=== PATIENT | male | born 1955 | race Caucasian/White ===

== ENCOUNTER 2017-11-19 14:32 | Emergency (ER) | payer BC, OTHER ==
[2017-11-19] MEDS ORDERED: Aspirin 81 MG Tab.Chew ONE (14:46)
[2017-11-19] MEDS ORDERED: Nitroglycerin 0.4 MG Tab.SL ONE (14:47)
[2017-11-19] MEDS ORDERED: Aspirin 81 MG Tab.Chew PO ONE (14:55)
[2017-11-19] MEDS ORDERED: Nitroglycerin 0.4 MG Tab.SL SL ONE (14:55)
[2017-11-19] MEDS ORDERED: Ketorolac 60 MG/2 ML SDV ONE (16:04)
[2017-11-19] MEDS ORDERED: Ketorolac 60 MG/2 ML SDV IM ONE (16:05)
--- NOTE | 2017-11-20 09:45 | CR ---
Chest 1V Frontal HISTORY: CHEST COMPARISON: None FINDINGS: Portable chest, 1449 hours. Lungs appear clear and normally aerated. Cardiomediastinal silhouette is within normal limits. No vas cular redistribution or pleural fluid can be seen. Small anterolateral aspects are noted along the th oracic spine. IMPRESSION: No acute chest abnormality identified.
[2017-11-20 15:19] VITALS: BP 128/78
== END 2017-11-19 16:49 | disposition home or self-care (01) ==
LOC: JP.ED 14:32
DX: R07.89 Other chest pain (principal); I10 Essential (primary) hypertension; Z88.0 Allergy status to penicillin; Z79.899 Other long term (current) drug therapy
CPT/HCPCS: 36415; 71010; 80053; 82550; 84484; 85025; 96372; 99285; A9270; J1885; 93005; 93010; 99284

== ENCOUNTER 2019-07-02 14:04 | Emergency (ER) | payer OTHER ==
[2019-07-02 14:22] VITALS: BP 120/75; PULSE 76
--- NOTE | 2019-07-02 14:54 | EDM.PDOC ---
ED HPI GENERAL MEDICAL PROBLEM - General Chief Complaint: General Stated Complaint: FEELING POORLY MAYBE FROM TICK BITE Time Seen by Provider: 07/02/19 14:30 Source of Information: Reports: Patient History Limitations: Reports: No Limitations - History of Present Illness INITIAL COMMENTS - FREE TEXT/NARRATIVE: 63-year-old male had generalized body aches yesterday and a fever. He had been feeling healthy up until that time. Today he feels better but he called the [facility] and asked them if he should be seen and they told him to come to the emergency room. He has no dysuria, cough, sore throat, abdominal pain, nausea vomiting or diarrhea. He's had no rashes. He has had several tick bites this year. He has an appointment at the [facility] in 4 days. Onset: Sudden Duration: Day(s): (24 hours ago) Associated Symptoms: Reports: Fever/Chills, Malaise, Weakness. Denies: Confusion, Cough, Headaches, Shortness of Breath Generalized Pain Score (Numeric/FACES): 2 - Related Data Allergies Allergy/AdvReac Type Severity Reaction Status Date / Time Penicillins Allergy Hives Verified 07/02/19 14:24 Home Meds: Home Meds Atenolol/Chlorthalidone [Tenoretic 50] 1 tab PO DAILY 05/08/15 [History] Hydroxychloroquine Sulfate [Plaquenil] 200 mg PO DAILY 05/08/15 [History] Lisinopril 1 tab PO DAILY 07/02/19 [History] Past Medical History HEENT History: Reports: Cataract, Impaired Vision Cardiovascular History: Reports: High Cholesterol, Hypertension Genitourinary History: Reports: BPH Musculoskeletal History: Reports: RA - Past Surgical History HEENT Surgical History: Reports: Cataract Surgery Musculoskeletal Surgical History: Reports: Knee Replacement Social & Family History - Recreational Drug Use Recreational Drug Use: No ED ROS GENERAL - Review of Systems Review Of Systems: See Below Constitutional: Reports: Fever, Chills, Malaise HEENT: Reports: No Symptoms. Denies: Throat Pain Respiratory: Denies: Shortness of Breath, Cough Cardiovascular: Denies: Chest Pain GI/Abdominal: Denies: Abdominal Pain, Nausea, Vomiting : Reports: No Symptoms Musculoskeletal: Reports: Other (Joints were aching yesterday, not swollen) Skin: Reports: Bruising (Bruises easily) Neurological: Denies: Headache ED EXAM, GENERAL - Physical Exam Exam: See Below Exam Limited By: No Limitations General Appearance: Alert, No Apparent Distress Eye Exam: Bilateral Eye: Normal Inspection Head: Atraumatic Neck: Normal Inspection Respiratory/Chest: No Respiratory Distress, Lungs Clear Cardiovascular: Regular Rate, Rhythm GI/Abdominal: Non-Tender Extremities: Other (Bruises and abrasions on the extremities but no rash) Neurological: Alert, Oriented Course - Vital Signs Last Recorded V/S: Last Vital Signs Temp 95.9 F 07/02/19 14:23 Pulse 76 07/02/19 14:23 Resp 16 07/02/19 14:23 BP 120/75 07/02/19 14:23 Pulse Ox 98 07/02/19 14:23 - Re-Assessments/Exams Free Text/Narrative Re-Assessment/Exam: 07/02/19 14:51 Explained to the patient that if we draw tick disease titers at this time, we will not get results back until next [facility]. We can start him on doxycycline today and he can have these labs done on Saturday and he would prefer to do that if possible. He does understand that this may have been just viral and will not respond to antibiotics, he can discuss this when he gets rechecked on Saturday. Being on an antibiotic should not affect his blood tests. Departure - Departure Time of Disposition: 15:14 Disposition: Home, Self-Care 01 Clinical Impression: Fever Qualifiers: Fever type: unspecified Qualified Code(s): R50.9 - Fever, unspecified Joint pain Qualifiers: Joint pain location: unspecified Qualified Code(s): M25.50 - Pain in unspecified joint - Discharge Information Instructions: Fever, Adult Referrals: Jamia Gilbert MD [Primary Care Provider] - Forms: ED Department Discharge Care Plan Goals: Take antibiotic twice daily as prescribed and recheck on Saturday as scheduled. Consider drawing tick disease titers on Saturday with your other blood tests. He can return sooner if worsening such as persistent high fever or vomiting the medication.
== END 2019-07-02 15:14 | disposition home or self-care (01) ==
LOC: JP.ED 14:04
DX: R50.9 Fever, unspecified (principal); M25.50 Pain in unspecified joint; I10 Essential (primary) hypertension; E78.00 Pure hypercholesterolemia, unspecified; Z88.0 Allergy status to penicillin; Z79.899 Other long term (current) drug therapy
CPT/HCPCS: 99282; 99283

== ENCOUNTER 2021-02-04 11:49 | Inpatient (IN) | payer OTHER ==
--- NOTE | 2021-02-04 12:38 | EDM.PDOC ---
ED HPI GENERAL MEDICAL PROBLEM - General Chief Complaint: General Stated Complaint: LOW BP Time Seen by Provider: 02/04/21 12:18 Source of Information: Reports: Patient, Family, RN Notes Reviewed History Limitations: Reports: No Limitations - History of Present Illness INITIAL COMMENTS - FREE TEXT/NARRATIVE: 65-year-old gentleman presents emergency department today with complaint of low blood pressure, he was initially evaluated in the clinic subsequently called by the clinic provider for transfer to the emergency department as he was hypotensive in clinic systolic blood pressure in the mid 70s. He states he has been ill for about 5 days has had some fevers at home body aches was tested for Covid 2 days prior which was negative he states he had a swab done in the clinic influenza was negative for a and B today and Covid test was -2 days prior - Related Data Allergies Allergy/AdvReac Type Severity Reaction Status Date / Time Penicillins Allergy Hives Verified 02/04/21 12:08 Home Meds: Home Meds Atenolol/Chlorthalidone [Tenoretic 50] 1 tab PO DAILY 05/08/15 [History] Hydroxychloroquine Sulfate [Plaquenil] 200 mg PO DAILY 05/08/15 [History] Lisinopril 1 tab PO DAILY 07/02/19 [History] Past Medical History HEENT History: Reports: Cataract, Impaired Vision Cardiovascular History: Reports: High Cholesterol, Hypertension Genitourinary History: Reports: BPH Musculoskeletal History: Reports: RA - Past Surgical History HEENT Surgical History: Reports: Cataract Surgery Musculoskeletal Surgical History: Reports: Knee Replacement Social & Family History - Tobacco Use Tobacco Use Status *Q: Former Tobacco User Packs/Tins Daily: 45 Used Tobacco, but Quit: Yes Month/Year Tobacco Last Used: saturday ED ROS GENERAL - Review of Systems Review Of Systems: See Below Constitutional: Reports: Fever, Chills HEENT: Reports: No Symptoms Respiratory: Reports: No Symptoms Cardiovascular: Reports: No Symptoms GI/Abdominal: Reports: No Symptoms Musculoskeletal: Reports: Muscle Pain, Muscle Stiffness ED EXAM, GENERAL - Physical Exam Exam: See Below Exam Limited By: No Limitations General Appearance: Alert, WD/WN, No Apparent Distress Respiratory/Chest: No Respiratory Distress, Lungs Clear, Normal Breath Sounds, No Accessory Muscle Use, Chest Non-Tender Cardiovascular: Regular Rate, Rhythm, No Murmur GI/Abdominal: Soft, Non-Tender Course - Vital Signs Last Recorded V/S: Last Vital Signs Temp 96.5 F L 02/04/21 12:20 Pulse 64 02/04/21 12:20 Resp 14 02/04/21 12:20 BP 78/48 L 02/04/21 12:20 Pulse Ox 91 L 02/04/21 12:20 - Orders/Labs/Meds Orders: Active Orders 24 hr Category Date Time Status Patient Status Manage Transfer [TRANSFER] Routine ADT 02/04/21 14:02 Active Vital Signs [RC] Q1H Care 02/04/21 12:34 Active Chest 2V [CR] Urgent Exams 02/04/21 12:36 Taken CULTURE BLOOD [BC] Urgent Lab 02/04/21 12:45 Received CULTURE BLOOD [BC] Urgent Lab 02/04/21 12:48 Received UA W/MICROSCOPIC [URIN] Urgent Lab 02/04/21 12:34 Ordered Blood Culture x2 Reflex Set [OM.PC] Urgent Oth 02/04/21 12:34 Ordered Resuscitation Status Routine Resus Stat 02/04/21 14:04 Ordered Labs: Laboratory Tests 02/04/21 02/04/21 02/04/21 Range/Units 12:01 12:01 12:01 WBC 12.5 H (4.5-11.0) K/uL RBC 4.59 (4.30-5.90) M/uL Hgb 15.0 (12.0-15.0) g/dL Hct 43.5 (40.0-54.0) % MCV 95 (80-98) fL MCH 33 H (27-31) pg MCHC 35 (32-36) % Plt Count 234 (150-400) K/uL Neut % (Auto) 71 H (36-66) % Lymph % (Auto) 17 L (24-44) % [place] % (Auto) 11 H (2-6) % Eos % (Auto) 1 L (2-4) % Baso % (Auto) 1 (0-1) % Sodium 139 L (140-148) mmol/L Potassium 3.1 L (3.6-5.2) mmol/L Chloride 101 (100-108) mmol/L Carbon Dioxide 27 (21-32) mmol/L Anion Gap 14.1 H (5.0-14.0) mmol/L BUN 31 H D (7-18) mg/dL Creatinine 2.0 H D (0.8-1.3) mg/dL Est Cr Clr Drug Dosing 39.34 mL/min Estimated GFR (MDRD) 33 L (>60) Glucose 118 H (74-106) mg/dL Lactic Acid 2.2 H (0.4-2.0) mmol/L Calcium 9.4 (8.5-10.1) mg/dL Total Bilirubin 0.4 D (0.2-1.0) mg/dL AST 58 H (15-37) U/L ALT 47 (12-78) U/L Alkaline Phosphatase 50 (46-116) U/L C-Reactive Protein 14.96 H (0.0-0.3) mg/dL Total Protein 7.2 (6.4-8.2) g/dL Albumin 3.5 (3.4-5.0) g/dL Globulin 3.7 H (2.3-3.5) g/dL Albumin/Globulin Ratio 1.0 L (1.2-2.2) Procalcitonin ng/mL Influenza Type A RNA (NEGATIVE) RSV RNA (INAAT) (NEGATIVE) Influenza Type B RNA (NEGATIVE) SARS-CoV-2 RNA (BECKI) (NEGATIVE) 02/04/21 02/04/21 Range/Units 12:01 13:46 WBC (4.5-11.0) K/uL RBC (4.30-5.90) M/uL Hgb (12.0-15.0) g/dL Hct (40.0-54.0) % MCV (80-98) fL MCH (27-31) pg MCHC (32-36) % Plt Count (150-400) K/uL Neut % (Auto) (36-66) % Lymph % (Auto) (24-44) % [place] % (Auto) (2-6) % Eos % (Auto) (2-4) % Baso % (Auto) (0-1) % Sodium (140-148) mmol/L Potassium (3.6-5.2) mmol/L Chloride (100-108) mmol/L Carbon Dioxide (21-32) mmol/L Anion Gap (5.0-14.0) mmol/L BUN (7-18) mg/dL Creatinine (0.8-1.3) mg/dL Est Cr Clr Drug Dosing mL/min Estimated GFR (MDRD) (>60) Glucose (74-106) mg/dL Lactic Acid (0.4-2.0) mmol/L Calcium (8.5-10.1) mg/dL Total Bilirubin (0.2-1.0) mg/dL AST (15-37) U/L ALT (12-78) U/L Alkaline Phosphatase (46-116) U/L C-Reactive Protein (0.0-0.3) mg/dL Total Protein (6.4-8.2) g/dL Albumin (3.4-5.0) g/dL Globulin (2.3-3.5) g/dL Albumin/Globulin Ratio (1.2-2.2) Procalcitonin 0.41 ng/mL Influenza Type A RNA Negative (NEGATIVE) RSV RNA (INAAT) Negative (NEGATIVE) Influenza Type B RNA Negative (NEGATIVE) SARS-CoV-2 RNA (BECKI) Negative (NEGATIVE) Meds: Medications Discontinued Medications Generic Name Dose Route Start Last Admin Trade Name Freq PRN Reason Stop Dose Admin Lactated Ringer's 1,000 mls @ 999 mls/hr 02/04/21 12:50 02/04/21 13:53 Ringers, Lactated IV 02/04/21 13:50 999 mls/hr BOLUS ONE Administration Ceftriaxone Sodium 1 gm/ 50 mls @ 100 mls/hr 02/04/21 13:25 02/04/21 13:54 Sodium Chloride IV 02/04/21 13:54 100 mls/hr ONETIME ONE Administration Departure - Departure Time of Disposition: 14:31 Disposition: Admitted As Inpatient 64 Condition: Fair Clinical Impression: CAP (community acquired pneumonia) Qualifiers: Laterality: right Lung location: lower lobe of lung Qualified Code(s): J18.9 - Pneumonia, unspecified organism - Discharge Information Referrals: Nicolas nKox MD [Primary Care Provider] - Forms: ED Department Discharge Sepsis Event Note (ED) - Evaluation Sepsis Screening Result: No Definite Risk - Focused Exam Vital Signs: Vital Signs Temp Pulse Resp BP Pulse Ox 02/04/21 12:20 96.5 F L 64 14 78/48 L 91 L - My Orders Last 24 Hours: My Active Orders 02/04/21 12:34 Vital Signs [RC] Q1H UA W/MICROSCOPIC [URIN] Urgent Blood Culture x2 Reflex Set [OM.PC] Urgent 02/04/21 12:36 Chest 2V [CR] Urgent 02/04/21 12:45 CULTURE BLOOD [BC] Urgent 02/04/21 12:48 CULTURE BLOOD [BC] Urgent - Assessment/Plan Last 24 Hours: My Active Orders 02/04/21 12:34 Vital Signs [RC] Q1H UA W/MICROSCOPIC [URIN] Urgent Blood Culture x2 Reflex Set [OM.PC] Urgent 02/04/21 12:36 Chest 2V [CR] Urgent 02/04/21 12:45 CULTURE BLOOD [BC] Urgent 02/04/21 12:48 CULTURE BLOOD [BC] Urgent Plan: Assessment Acuity = acute Site and laterality = community-acquired pneumonia right lower lobe Etiology = probable bacterial cause Manifestations = fever, body aches Location of injury = Home Lab values = WBC elevated 12.5 consistent leukocytosis, potassium 3.1 consistent hypokalemia creatinine elevated 2.0 consistent with acute renal failure stage G 3P lactic acid elevated 2.2 consistent lactic acidosis CRP elevated 14.96 procalcitonin 0.41 chest x-ray shows an infiltrate right lower lobe urinalysis pending Covid repeat swab pending, blood cultures pending Plan Call discussed case with hospitalist on-call at 1330 currently agreed to come and evaluate patient emergency department for admission thus far he has received 1 g Rocephin and 1 dose of levofloxacin 750 mg This note was dictated using [employer] voice recognition software please call with any questions on syntax or grammar.
[2021-02-04] MEDS: Lactated Ringers 1,000 ML IV ONE ×2 (13:14→13:53)
[2021-02-04] MEDS ORDERED: cefTRIAXone 1 GM in Sodium Chloride 0.9% 50 ML IV ONE (13:25)
--- NOTE | 2021-02-04 14:10 | PCM.HP.2 ---
H&P History of Present Illness - General Date of Service: 02/04/21 Admit Problem/Dx: Admission Diagnosis/Problem Admission Diagnosis/Problem Pneumonia Source of Information: Patient, Provider, RN Notes Reviewed History Limitations: Reports: No Limitations - History of Present Illness Initial Comments - Free Text/Narative: Mr. Chanel is a 65-year-old gentleman who was admitted through the emergency department with fever and progressive weakness secondary to pneumonia with sepsis. He last felt well about 4 days ago and then developed fever with progressive weakness and anorexia. Because of increased symptoms he presented the walk-in clinic earlier today and was found to be significantly hypotensive, colic pressure into the 70s. He was referred to the emergency department for further evaluation and management. He was also noted to have significant hypotension when he arrived in the emergency department. Chest x-ray does show evidence of right lung infiltrate consistent with pneumonia. Blood cell count was modestly elevated and there was a slight elevation in lactic acid level. Per sepsis protocol he has received fluid bolus of 30 cc/kg, blood cultures have been obtained, and he has received first dose of antibiotic therapy. Follow-up lactic acid level 4 hours after original level is pending. Blood pressure has improved following aggressive fluid replacement. - Related Data Allergies/Adverse Reactions: Allergies Allergy/AdvReac Type Severity Reaction Status Date / Time Penicillins Allergy Hives Verified 02/04/21 12:08 Home Medications: Home Meds Atenolol/Chlorthalidone [Tenoretic 50] 1 tab PO DAILY 05/08/15 [History] Hydroxychloroquine Sulfate [Plaquenil] 200 mg PO DAILY 05/08/15 [History] Lisinopril 1 tab PO DAILY 07/02/19 [History] Past Medical History HEENT History: Reports: Cataract, Impaired Vision Cardiovascular History: Reports: High Cholesterol, Hypertension Genitourinary History: Reports: BPH Musculoskeletal History: Reports: RA - Past Surgical History HEENT Surgical History: Reports: Cataract Surgery Musculoskeletal Surgical History: Reports: Knee Replacement Social & Family History - Tobacco Use Tobacco Use Status *Q: Former Tobacco User Packs/Tins Daily: 45 Used Tobacco, but Quit: Yes Month/Year Tobacco Last Used: saturday H&P Review of Systems - Review of Systems: Review Of Systems: See Below General: Reports: Fever, Chills, Malaise, Weakness, Fatigue, Decreased Appetite HEENT: Reports: No Symptoms Pulmonary: Reports: Cough. Denies: Shortness of Breath, Wheezing, Sputum, Hemoptysis Cardiovascular: Reports: No Symptoms Gastrointestinal: Reports: No Symptoms Genitourinary: Reports: No Symptoms Musculoskeletal: Reports: No Symptoms Skin: Reports: No Symptoms Psychiatric: Reports: No Symptoms Neurological: Reports: No Symptoms Hematologic/Lymphatic: Reports: No Symptoms Immunologic: Reports: No Symptoms Exam - Exam Exam: See Below - Vital Signs Vital Signs: Last Vital Signs Temp 96.5 F L 02/04/21 12:20 Pulse 64 02/04/21 12:20 Resp 14 02/04/21 12:20 BP 78/48 L 02/04/21 12:20 Pulse Ox 91 L 02/04/21 12:20 Weight: 212 lb - Exam Quality Assessment: DVT Prophylaxis General: Alert, Oriented, Cooperative, Moderate Distress HEENT: Conjunctiva Clear, Hearing Intact, Normal Nasal Septum, Posterior Pharynx Clear, Pupils Equal. No: Mucosa Moist & [place] Neck: Supple, Trachea Midline, +2 Carotid Pulse wo Bruit Lungs: Normal Respiratory Effort, Rales. No: Crackles, Rhonchi, Wheezing Cardiovascular: Regular Rate, Regular Rhythm, Normal S1, Normal S2. No: Systolic Murmur, Diastolic Murmur GI/Abdominal Exam: Soft, Non-Tender, No Organomegaly, No Distention Back Exam: Normal Inspection, Full Range of Motion Skin: Warm, Dry, Intact Neurological: Cranial Nerves Intact, Strength Equal Bilateral, Normal Speech, Normal Tone, Sensation Intact. No: Focal Deficit Neuro Extensive - Mental Status: Alert, Oriented x3, Normal Mood/Affect, Normal Cognition, Memory Intact - Patient Data Lab Results Last 24 hrs: Laboratory Results - last 24 hr 02/04/21 02/04/21 02/04/21 Range/Units 12:01 12:01 12:01 WBC 12.5 H (4.5-11.0) K/uL RBC 4.59 (4.30-5.90) M/uL Hgb 15.0 (12.0-15.0) g/dL Hct 43.5 (40.0-54.0) % MCV 95 (80-98) fL MCH 33 H (27-31) pg MCHC 35 (32-36) % Plt Count 234 (150-400) K/uL Neut % (Auto) 71 H (36-66) % Lymph % (Auto) 17 L (24-44) % [place] % (Auto) 11 H (2-6) % Eos % (Auto) 1 L (2-4) % Baso % (Auto) 1 (0-1) % Sodium 139 L (140-148) mmol/L Potassium 3.1 L (3.6-5.2) mmol/L Chloride 101 (100-108) mmol/L Carbon Dioxide 27 (21-32) mmol/L Anion Gap 14.1 H (5.0-14.0) mmol/L BUN 31 H D (7-18) mg/dL Creatinine 2.0 H D (0.8-1.3) mg/dL Est Cr Clr Drug Dosing 39.34 mL/min Estimated GFR (MDRD) 33 L (>60) Glucose 118 H (74-106) mg/dL Lactic Acid 2.2 H (0.4-2.0) mmol/L Calcium 9.4 (8.5-10.1) mg/dL Total Bilirubin 0.4 D (0.2-1.0) mg/dL AST 58 H (15-37) U/L ALT 47 (12-78) U/L Alkaline Phosphatase 50 (46-116) U/L C-Reactive Protein 14.96 H (0.0-0.3) mg/dL Total Protein 7.2 (6.4-8.2) g/dL Albumin 3.5 (3.4-5.0) g/dL Globulin 3.7 H (2.3-3.5) g/dL Albumin/Globulin Ratio 1.0 L (1.2-2.2) Procalcitonin ng/mL 02/04/21 Range/Units 12:01 WBC (4.5-11.0) K/uL RBC (4.30-5.90) M/uL Hgb (12.0-15.0) g/dL Hct (40.0-54.0) % MCV (80-98) fL MCH (27-31) pg MCHC (32-36) % Plt Count (150-400) K/uL Neut % (Auto) (36-66) % Lymph % (Auto) (24-44) % [place] % (Auto) (2-6) % Eos % (Auto) (2-4) % Baso % (Auto) (0-1) % Sodium (140-148) mmol/L Potassium (3.6-5.2) mmol/L Chloride (100-108) mmol/L Carbon Dioxide (21-32) mmol/L Anion Gap (5.0-14.0) mmol/L BUN (7-18) mg/dL Creatinine (0.8-1.3) mg/dL Est Cr Clr Drug Dosing mL/min Estimated GFR (MDRD) (>60) Glucose (74-106) mg/dL Lactic Acid (0.4-2.0) mmol/L Calcium (8.5-10.1) mg/dL Total Bilirubin (0.2-1.0) mg/dL AST (15-37) U/L ALT (12-78) U/L Alkaline Phosphatase (46-116) U/L C-Reactive Protein (0.0-0.3) mg/dL Total Protein (6.4-8.2) g/dL Albumin (3.4-5.0) g/dL Globulin (2.3-3.5) g/dL Albumin/Globulin Ratio (1.2-2.2) Procalcitonin 0.41 ng/mL Result Diagrams: 02/04/21 12:01 02/04/21 12:01 Sepsis Event Note - Evaluation Sepsis Screening Result: No Definite Risk - Focused Exam Vital Signs: Vital Signs Temp Pulse Resp BP Pulse Ox 02/04/21 12:20 96.5 F L 64 14 78/48 L 91 L *Q Meaningful Use (ADM) - VTE Risk Assess *Q Each Risk Factor Represents 1 Point: Obesity ( BMI > 25 kg/m2), Sepsis, Serious lung disease including pneumonia Total Score 1 Point Risk Factors: 3 Each Risk Factor Represents 2 Points: Age 60 - 74 Years Total Score 2 Point Risk Factors: 2 Each Risk Factor Represents 3 Points: None Total Score 3 Point Risk Factors: 0 Each Risk Factor Represents 5 Points: None Total Score 5 Point Risk Factors: 0 Venous Thromboembolism Risk Factor Score *Q: 5 Problem List Initiated/Reviewed/Updated: Yes Orders Last 24hrs: Active Orders 24 hr Category Date Time Status Patient Status Manage Transfer [TRANSFER] Routine ADT 02/04/21 14:02 Ordered Vital Signs [RC] Q1H Care 02/04/21 12:34 Active Chest 2V [CR] Urgent Exams 02/04/21 12:36 Taken COVID-19/FLU A+B/RSV [MOLEC] Stat Lab 02/04/21 13:46 Received CULTURE BLOOD [BC] Urgent Lab 02/04/21 12:45 Received CULTURE BLOOD [BC] Urgent Lab 02/04/21 12:48 Received UA W/MICROSCOPIC [URIN] Urgent Lab 02/04/21 12:34 Ordered Blood Culture x2 Reflex Set [OM.PC] Urgent Oth 02/04/21 12:34 Ordered Resuscitation Status Routine Resus Stat 02/04/21 14:04 Ordered Assessment/Plan Comment:: ASSESSMENT AND PLAN RIGHT LUNG PNEUMONIA WITH SEPSIS-infiltrate noted on chest x-ray associated with modest elevation in white blood cell count and lactic acid level. Severe hypotension noted on initial assessment. Blood pressure has stabilized following vigorous fluid replacement per sepsis protocol, 30 mL/kg. He has received initial dose of antibiotics and blood cultures were obtained. -IV norepinephrine for further hypotension -Blood cultures pending -IV ceftriaxone and levofloxacin, pending culture results ACUTE KIDNEY INJURY-likely secondary to dehydration and sepsis. He also reports use of nonsteroidal therapy with ibuprofen at home over the past few days. -Closely monitor urine output and renal function HYPERTENSION-blood pressure low secondary to sepsis -Hold outpatient antihypertensive therapy until blood pressure has stabilized MAINTENANCE ISSUES -DVT prophylaxis; Lovenox 40 mg subcu daily -GI prophylaxis; not indicated -Brady catheter; not indicated -Nutrition; 2 g sodium diet -Nicotine dependence; not required CODE STATUS-FULL CODE ADMISSION STATUS-patient will be admitted to inpatient status, expect at least a 2 night hospital stay for evaluation and management of problems as outlined above. At the time of this admission I do not reasonably expected evaluation and management of this problem will require more than a 96 hour hospital stay. DISPOSITION-anticipate discharge to home after the hospital stay. PRIMARY CARE PROVIDER-Dr. Knox - Mortality Measure Prognosis:: Good
[2021-02-04 14:26] LABS: CORONAVIRUS COVID-19 NAA NEGATIVE (NEGATIVE)
[2021-02-04] MEDS ORDERED: Ondansetron 4 MG/2 ML SDV IV PRN (15:15)
[2021-02-04] MEDS ORDERED: Polyethylene Glycol 3350 Powder 17 GM Packet PO PRN (15:15)
[2021-02-04] MEDS ORDERED: Albuterol 0.083% 2.5 MG/3 ML Neb Soln NEB PRN (15:15)
[2021-02-04] MEDS ORDERED: Sodium Chloride 0.9% 10 ML Syringe FLUSH PRN (15:15)
[2021-02-04] MEDS ORDERED: Potassium Chloride 20 MEQ Tab.ER PO ONE ×2 (15:45→21:00)
[2021-02-04] MEDS: Sodium Chloride 0.9% 1,000 ML IV SCH (16:00)
[2021-02-04] MEDS: Levofloxacin/Dextrose 5%-Water 750 MG in Premix Bag 1 BAG IV SCH (16:01)
[2021-02-04] MEDS: Acetaminophen 325 MG Tab PO PRN (16:01)
[2021-02-04] MEDS: Enoxaparin 40 MG/0.4 ML Syringe SUBCUT SCH (16:02)
[2021-02-05] MEDS: Sodium Chloride 0.9% 1,000 ML IV SCH ×2 (00:59→08:33)
[2021-02-05] MEDS: Acetaminophen 325 MG Tab PO PRN ×2 (05:50→23:19)
[2021-02-05] MEDS: Magnesium Sulfate/Water 2 GM/50 ML BAG IV SCH ×2 (08:26→16:57)
[2021-02-05] MEDS: Magnesium Oxide 400 MG Tab PO SCH ×2 (08:27→20:41)
[2021-02-05] MEDS ORDERED: Potassium Chloride 20 MEQ Tab.ER PO ONE ×2 (09:00→17:00)
[2021-02-05] MEDS ORDERED: Sodium Chloride 0.9% 1,000 ML IV SCH (10:15)
--- NOTE | 2021-02-05 10:16 | PCM.PN ---
- General Info Date of Service: 02/05/21 Subjective Update: Mr. Chanel has been stable to admission yesterday. After IV fluid boluses there has been no further hypotension. Vital signs have otherwise been stable and he has remained afebrile. White blood cell count and lactic acid level have normalized. Functional Status: Reports: Tolerating Diet, Urinating - Review of Systems General: Reports: Weakness, Fatigue. Denies: Fever, Chills Pulmonary: Reports: No Symptoms Cardiovascular: Reports: No Symptoms Gastrointestinal: Reports: No Symptoms - Patient Data Vitals - Most Recent: Last Vital Signs Temp 97.4 F 02/05/21 08:00 Pulse 72 02/05/21 08:00 Resp 14 02/05/21 08:00 BP 99/68 02/05/21 08:00 Pulse Ox 98 02/05/21 08:00 Weight - Most Recent: 218 lb 14.704 oz I&O - Last 24 Hours: Intake & Output 02/04/21 02/05/21 02/05/21 22:59 06:59 14:59 Intake Total 420 2162 400 Output Total 0 1525 Balance 420 637 400 Lab Results Last 24 Hours: Laboratory Results - last 24 hr 02/04/21 02/04/21 02/04/21 Range/Units 12:01 12:01 12:01 WBC 12.5 H (4.5-11.0) K/uL RBC 4.59 (4.30-5.90) M/uL Hgb 15.0 (12.0-15.0) g/dL Hct 43.5 (40.0-54.0) % MCV 95 (80-98) fL MCH 33 H (27-31) pg MCHC 35 (32-36) % Plt Count 234 (150-400) K/uL Neut % (Auto) 71 H (36-66) % Lymph % (Auto) 17 L (24-44) % Harnett % (Auto) 11 H (2-6) % Eos % (Auto) 1 L (2-4) % Baso % (Auto) 1 (0-1) % Sodium 139 L (140-148) mmol/L Potassium 3.1 L (3.6-5.2) mmol/L Chloride 101 (100-108) mmol/L Carbon Dioxide 27 (21-32) mmol/L Anion Gap 14.1 H (5.0-14.0) mmol/L BUN 31 H D (7-18) mg/dL Creatinine 2.0 H D (0.8-1.3) mg/dL Est Cr Clr Drug Dosing 39.34 mL/min Estimated GFR (MDRD) 33 L (>60) Glucose 118 H (74-106) mg/dL Lactic Acid 2.2 H (0.4-2.0) mmol/L Calcium 9.4 (8.5-10.1) mg/dL Magnesium (1.8-2.4) mg/dL Total Bilirubin 0.4 D (0.2-1.0) mg/dL AST 58 H (15-37) U/L ALT 47 (12-78) U/L Alkaline Phosphatase 50 (46-116) U/L C-Reactive Protein 14.96 H (0.0-0.3) mg/dL Total Protein 7.2 (6.4-8.2) g/dL Albumin 3.5 (3.4-5.0) g/dL Globulin 3.7 H (2.3-3.5) g/dL Albumin/Globulin Ratio 1.0 L (1.2-2.2) Procalcitonin ng/mL Urine Color (YELLOW) Urine Appearance (CLEAR) Urine pH (5.0-8.0) Ur Specific [place] (1.008-1.030) Urine Protein (NEGATIVE) mg/dL Urine Glucose (UA) (NEGATIVE) mg/dL Urine Ketones (NEGATIVE) mg/dL Urine Occult Blood (NEGATIVE) Urine Nitrite (NEGATIVE) Urine Bilirubin (NEGATIVE) Urine Urobilinogen (0.2-1.0) EU/dL Ur Leukocyte Esterase (NEGATIVE) Urine RBC (0-5) Urine WBC (0-5) Ur Epithelial Cells Amorphous Sediment Urine Bacteria Urine Mucus Urine Other Influenza Type A RNA (NEGATIVE) RSV RNA (INAAT) (NEGATIVE) Influenza Type B RNA (NEGATIVE) SARS-CoV-2 RNA (BECKI) (NEGATIVE) 02/04/21 02/04/21 02/04/21 Range/Units 12:01 12:34 13:46 WBC (4.5-11.0) K/uL RBC (4.30-5.90) M/uL Hgb (12.0-15.0) g/dL Hct (40.0-54.0) % MCV (80-98) fL MCH (27-31) pg MCHC (32-36) % Plt Count (150-400) K/uL Neut % (Auto) (36-66) % Lymph % (Auto) (24-44) % Harnett % (Auto) (2-6) % Eos % (Auto) (2-4) % Baso % (Auto) (0-1) % Sodium (140-148) mmol/L Potassium (3.6-5.2) mmol/L Chloride (100-108) mmol/L Carbon Dioxide (21-32) mmol/L Anion Gap (5.0-14.0) mmol/L BUN (7-18) mg/dL Creatinine (0.8-1.3) mg/dL Est Cr Clr Drug Dosing mL/min Estimated GFR (MDRD) (>60) Glucose (74-106) mg/dL Lactic Acid (0.4-2.0) mmol/L Calcium (8.5-10.1) mg/dL Magnesium (1.8-2.4) mg/dL Total Bilirubin (0.2-1.0) mg/dL AST (15-37) U/L ALT (12-78) U/L Alkaline Phosphatase (46-116) U/L C-Reactive Protein (0.0-0.3) mg/dL Total Protein (6.4-8.2) g/dL Albumin (3.4-5.0) g/dL Globulin (2.3-3.5) g/dL Albumin/Globulin Ratio (1.2-2.2) Procalcitonin 0.41 ng/mL Urine Color Yellow (YELLOW) Urine Appearance Clear (CLEAR) Urine pH 5.5 (5.0-8.0) Ur Specific [place] 1.015 (1.008-1.030) Urine Protein 30 H (NEGATIVE) mg/dL Urine Glucose (UA) Negative (NEGATIVE) mg/dL Urine Ketones Negative (NEGATIVE) mg/dL Urine Occult Blood Small H (NEGATIVE) Urine Nitrite Negative (NEGATIVE) Urine Bilirubin Negative (NEGATIVE) Urine Urobilinogen 0.2 (0.2-1.0) EU/dL Ur Leukocyte Esterase Negative (NEGATIVE) Urine RBC 0-5 (0-5) Urine WBC 0-5 (0-5) Ur Epithelial Cells Few Amorphous Sediment Few Urine Bacteria Few Urine Mucus Few Urine Other Influenza Type A RNA Negative (NEGATIVE) RSV RNA (INAAT) Negative (NEGATIVE) Influenza Type B RNA Negative (NEGATIVE) SARS-CoV-2 RNA (BECKI) Negative (NEGATIVE) 02/04/21 02/05/21 02/05/21 Range/Units 16:12 04:00 04:00 WBC 9.6 (4.5-11.0) K/uL RBC 3.55 L (4.30-5.90) M/uL Hgb 11.9 L D (12.0-15.0) g/dL Hct 34.0 L (40.0-54.0) % MCV 96 (80-98) fL MCH 34 H (27-31) pg MCHC 35 (32-36) % Plt Count 182 (150-400) K/uL Neut % (Auto) 71 H (36-66) % Lymph % (Auto) 14 L (24-44) % [place]arnett % (Auto) 12 H (2-6) % Eos % (Auto) 2 (2-4) % Baso % (Auto) 0 (0-1) % Sodium 140 (140-148) mmol/L Potassium 3.4 L (3.6-5.2) mmol/L Chloride 104 (100-108) mmol/L Carbon Dioxide 26 (21-32) mmol/L Anion Gap 13.4 (5.0-14.0) mmol/L BUN 27 H (7-18) mg/dL Creatinine 1.4 H (0.8-1.3) mg/dL Est Cr Clr Drug Dosing 56.20 mL/min Estimated GFR (MDRD) 51 L (>60) Glucose 96 (74-106) mg/dL Lactic Acid 1.1 (0.4-2.0) mmol/L Calcium 8.1 L (8.5-10.1) mg/dL Magnesium 1.3 L (1.8-2.4) mg/dL Total Bilirubin (0.2-1.0) mg/dL AST (15-37) U/L ALT (12-78) U/L Alkaline Phosphatase (46-116) U/L C-Reactive Protein (0.0-0.3) mg/dL Total Protein (6.4-8.2) g/dL Albumin (3.4-5.0) g/dL Globulin (2.3-3.5) g/dL Albumin/Globulin Ratio (1.2-2.2) Procalcitonin ng/mL Urine Color (YELLOW) Urine Appearance (CLEAR) Urine pH (5.0-8.0) Ur Specific [place] (1.008-1.030) Urine Protein (NEGATIVE) mg/dL Urine Glucose (UA) (NEGATIVE) mg/dL Urine Ketones (NEGATIVE) mg/dL Urine Occult Blood (NEGATIVE) Urine Nitrite (NEGATIVE) Urine Bilirubin (NEGATIVE) Urine Urobilinogen (0.2-1.0) EU/dL Ur Leukocyte Esterase (NEGATIVE) Urine RBC (0-5) Urine WBC (0-5) Ur Epithelial Cells Amorphous Sediment Urine Bacteria Urine Mucus Urine Other Influenza Type A RNA (NEGATIVE) RSV RNA (INAAT) (NEGATIVE) Influenza Type B RNA (NEGATIVE) SARS-CoV-2 RNA (BECKI) (NEGATIVE) Med Orders - Current: Current Medications Acetaminophen (Tylenol) 650 mg PO Q4H PRN PRN Reason: Pain (Mild 1-3)/fever Last Admin: 02/05/21 05:50 Dose: 650 mg Documented by: Albuterol (Proventil Neb Soln) 2.5 mg NEB Q4H PRN PRN Reason: Shortness Of Breath/wheezing Enoxaparin Sodium (Lovenox) 40 mg SUBCUT Q24H [facility] Last Admin: 02/04/21 16:02 Dose: 40 mg Documented by: Ceftriaxone Sodium 1 gm/ (Sodium Chloride) 50 mls @ 100 mls/hr IV Q24H [facility] Levofloxacin/Dextrose 750 mg/ (Premix) 150 mls @ 100 mls/hr IV Q24H [facility] Last Admin: 02/04/21 16:01 Dose: 100 mls/hr Documented by: Magnesium Sulfate (Magnesium Sulfate In Water 2 Gm/50 Ml) 2 gm in 50 mls @ 12.5 mls/hr IV Q6H [facility] Stop: 02/05/21 18:59 Last Admin: 02/05/21 08:26 Dose: 12.5 mls/hr Documented by: Sodium Chloride (Normal Saline) 1,000 mls @ 50 mls/hr IV ASDIRECTED [facility] Magnesium Oxide (Magnesium Oxide) 400 mg PO BID [facility] Last Admin: 02/05/21 08:27 Dose: 400 mg Documented by: Ondansetron HCl (Zofran) 4 mg IV Q4H PRN PRN Reason: Nausea/Vomiting Polyethylene Glycol (Miralax) 17 gm PO DAILY PRN PRN Reason: Constipation Potassium Chloride (Klor-Con M20) 40 meq PO ONETIME ONE Stop: 02/05/21 17:01 Sodium Chloride (Saline Flush) 10 ml FLUSH ASDIRECTED PRN PRN Reason: Keep Vein Open Discontinued Medications Lactated Ringer's (Ringers, Lactated) 1,000 mls @ 999 mls/hr IV BOLUS ONE Stop: 02/04/21 13:50 Last Admin: 02/04/21 13:53 Dose: 999 mls/hr Documented by: Ceftriaxone Sodium 1 gm/ (Sodium Chloride) 50 mls @ 100 mls/hr IV ONETIME ONE Stop: 02/04/21 13:54 Last Admin: 02/04/21 13:54 Dose: 100 mls/hr Documented by: Sodium Chloride (Normal Saline) 1,000 mls @ 125 mls/hr IV ASDIRECTED MARNI Last Admin: 02/05/21 08:33 Dose: 125 mls/hr Documented by: Potassium Chloride (Klor-Con M20) 40 meq PO ONETIME ONE Stop: 02/04/21 15:46 Last Admin: 02/04/21 16:05 Dose: 40 meq Documented by: Potassium Chloride (Klor-Con M20) 40 meq PO ONETIME ONE Stop: 02/04/21 21:01 Last Admin: 02/04/21 21:32 Dose: 40 meq Documented by: Potassium Chloride (Klor-Con M20) 40 meq PO ONETIME ONE Stop: 02/05/21 09:01 Last Admin: 02/05/21 08:27 Dose: 40 meq Documented by: - Exam Quality Assessment: DVT Prophylaxis General: Alert, Oriented, Cooperative, Mild Distress Lungs: Clear to Auscultation, Normal Respiratory Effort Cardiovascular: Regular Rate, Regular Rhythm, No Murmurs GI/Abdominal Exam: Soft, Non-Tender, No Organomegaly, No Distention Extremities: Non-Tender, No Pedal Edema - Patient Data Lab Results Last 24 hrs: Laboratory Results - last 24 hr 02/04/21 02/04/21 02/04/21 Range/Units 12:01 12:01 12:01 WBC 12.5 H (4.5-11.0) K/uL RBC 4.59 (4.30-5.90) M/uL Hgb 15.0 (12.0-15.0) g/dL Hct 43.5 (40.0-54.0) % MCV 95 (80-98) fL MCH 33 H (27-31) pg MCHC 35 (32-36) % Plt Count 234 (150-400) K/uL Neut % (Auto) 71 H (36-66) % Lymph % (Auto) 17 L (24-44) % [place] % (Auto) 11 H (2-6) % Eos % (Auto) 1 L (2-4) % Baso % (Auto) 1 (0-1) % Sodium 139 L (140-148) mmol/L Potassium 3.1 L (3.6-5.2) mmol/L Chloride 101 (100-108) mmol/L Carbon Dioxide 27 (21-32) mmol/L Anion Gap 14.1 H (5.0-14.0) mmol/L BUN 31 H D (7-18) mg/dL Creatinine 2.0 H D (0.8-1.3) mg/dL Est Cr Clr Drug Dosing 39.34 mL/min Estimated GFR (MDRD) 33 L (>60) Glucose 118 H (74-106) mg/dL Lactic Acid 2.2 H (0.4-2.0) mmol/L Calcium 9.4 (8.5-10.1) mg/dL Magnesium (1.8-2.4) mg/dL Total Bilirubin 0.4 D (0.2-1.0) mg/dL AST 58 H (15-37) U/L ALT 47 (12-78) U/L Alkaline Phosphatase 50 (46-116) U/L C-Reactive Protein 14.96 H (0.0-0.3) mg/dL Total Protein 7.2 (6.4-8.2) g/dL Albumin 3.5 (3.4-5.0) g/dL Globulin 3.7 H (2.3-3.5) g/dL Albumin/Globulin Ratio 1.0 L (1.2-2.2) Procalcitonin ng/mL Urine Color (YELLOW) Urine Appearance (CLEAR) Urine pH (5.0-8.0) Ur Specific [place] (1.008-1.030) Urine Protein (NEGATIVE) mg/dL Urine Glucose (UA) (NEGATIVE) mg/dL Urine Ketones (NEGATIVE) mg/dL Urine Occult Blood (NEGATIVE) Urine Nitrite (NEGATIVE) Urine Bilirubin (NEGATIVE) Urine Urobilinogen (0.2-1.0) EU/dL Ur Leukocyte Esterase (NEGATIVE) Urine RBC (0-5) Urine WBC (0-5) Ur Epithelial Cells Amorphous Sediment Urine Bacteria Urine Mucus Urine Other Influenza Type A RNA (NEGATIVE) RSV RNA (INAAT) (NEGATIVE) Influenza Type B RNA (NEGATIVE) SARS-CoV-2 RNA (BECKI) (NEGATIVE) 02/04/21 02/04/21 02/04/21 Range/Units 12:01 12:34 13:46 WBC (4.5-11.0) K/uL RBC (4.30-5.90) M/uL Hgb (12.0-15.0) g/dL Hct (40.0-54.0) % MCV (80-98) fL MCH (27-31) pg MCHC (32-36) % Plt Count (150-400) K/uL Neut % (Auto) (36-66) % Lymph % (Auto) (24-44) % [place] % (Auto) (2-6) % Eos % (Auto) (2-4) % Baso % (Auto) (0-1) % Sodium (140-148) mmol/L Potassium (3.6-5.2) mmol/L Chloride (100-108) mmol/L Carbon Dioxide (21-32) mmol/L Anion Gap (5.0-14.0) mmol/L BUN (7-18) mg/dL Creatinine (0.8-1.3) mg/dL Est Cr Clr Drug Dosing mL/min Estimated GFR (MDRD) (>60) Glucose (74-106) mg/dL Lactic Acid (0.4-2.0) mmol/L Calcium (8.5-10.1) mg/dL Magnesium (1.8-2.4) mg/dL Total Bilirubin (0.2-1.0) mg/dL AST (15-37) U/L ALT (12-78) U/L Alkaline Phosphatase (46-116) U/L C-Reactive Protein (0.0-0.3) mg/dL Total Protein (6.4-8.2) g/dL Albumin (3.4-5.0) g/dL Globulin (2.3-3.5) g/dL Albumin/Globulin Ratio (1.2-2.2) Procalcitonin 0.41 ng/mL Urine Color Yellow (YELLOW) Urine Appearance Clear (CLEAR) Urine pH 5.5 (5.0-8.0) Ur Specific [place] 1.015 (1.008-1.030) Urine Protein 30 H (NEGATIVE) mg/dL Urine Glucose (UA) Negative (NEGATIVE) mg/dL Urine Ketones Negative (NEGATIVE) mg/dL Urine Occult Blood Small H (NEGATIVE) Urine Nitrite Negative (NEGATIVE) Urine Bilirubin Negative (NEGATIVE) Urine Urobilinogen 0.2 (0.2-1.0) EU/dL Ur Leukocyte Esterase Negative (NEGATIVE) Urine RBC 0-5 (0-5) Urine WBC 0-5 (0-5) Ur Epithelial Cells Few Amorphous Sediment Few Urine Bacteria Few Urine Mucus Few Urine Other Influenza Type A RNA Negative (NEGATIVE) RSV RNA (INAAT) Negative (NEGATIVE) Influenza Type B RNA Negative (NEGATIVE) SARS-CoV-2 RNA (BECKI) Negative (NEGATIVE) 02/04/21 02/05/21 02/05/21 Range/Units 16:12 04:00 04:00 WBC 9.6 (4.5-11.0) K/uL RBC 3.55 L (4.30-5.90) M/uL Hgb 11.9 L D (12.0-15.0) g/dL Hct 34.0 L (40.0-54.0) % MCV 96 (80-98) fL MCH 34 H (27-31) pg MCHC 35 (32-36) % Plt Count 182 (150-400) K/uL Neut % (Auto) 71 H (36-66) % Lymph % (Auto) 14 L (24-44) % [place] % (Auto) 12 H (2-6) % Eos % (Auto) 2 (2-4) % Baso % (Auto) 0 (0-1) % Sodium 140 (140-148) mmol/L Potassium 3.4 L (3.6-5.2) mmol/L Chloride 104 (100-108) mmol/L Carbon Dioxide 26 (21-32) mmol/L Anion Gap 13.4 (5.0-14.0) mmol/L BUN 27 H (7-18) mg/dL Creatinine 1.4 H (0.8-1.3) mg/dL Est Cr Clr Drug Dosing 56.20 mL/min Estimated GFR (MDRD) 51 L (>60) Glucose 96 (74-106) mg/dL Lactic Acid 1.1 (0.4-2.0) mmol/L Calcium 8.1 L (8.5-10.1) mg/dL Magnesium 1.3 L (1.8-2.4) mg/dL Total Bilirubin (0.2-1.0) mg/dL AST (15-37) U/L ALT (12-78) U/L Alkaline Phosphatase (46-116) U/L C-Reactive Protein (0.0-0.3) mg/dL Total Protein (6.4-8.2) g/dL Albumin (3.4-5.0) g/dL Globulin (2.3-3.5) g/dL Albumin/Globulin Ratio (1.2-2.2) Procalcitonin ng/mL Urine Color (YELLOW) Urine Appearance (CLEAR) Urine pH (5.0-8.0) Ur Specific [place] (1.008-1.030) Urine Protein (NEGATIVE) mg/dL Urine Glucose (UA) (NEGATIVE) mg/dL Urine Ketones (NEGATIVE) mg/dL Urine Occult Blood (NEGATIVE) Urine Nitrite (NEGATIVE) Urine Bilirubin (NEGATIVE) Urine Urobilinogen (0.2-1.0) EU/dL Ur Leukocyte Esterase (NEGATIVE) Urine RBC (0-5) Urine WBC (0-5) Ur Epithelial Cells Amorphous Sediment Urine Bacteria Urine Mucus Urine Other Influenza Type A RNA (NEGATIVE) RSV RNA (INAAT) (NEGATIVE) Influenza Type B RNA (NEGATIVE) SARS-CoV-2 RNA (BECKI) (NEGATIVE) Result Diagrams: 02/05/21 04:00 02/05/21 04:00 Sepsis Event Note - Evaluation Sepsis Screening Result: No Definite Risk - Focused Exam Vital Signs: Vital Signs Temp Pulse Resp BP Pulse Ox 02/05/21 08:00 97.4 F 72 14 99/68 98 02/05/21 06:00 98.2 F 23 H 109/68 95 02/05/21 04:00 98 F 18 100/65 98 02/05/21 03:00 20 128/71 98 02/05/21 02:00 18 113/70 98 02/05/21 01:00 20 112/60 98 02/05/21 00:00 97.6 F 16 101/64 99 - Problem List Review Problem List Initiated/Reviewed/Updated: Yes - My Orders Last 24 Hours: My Active Orders 02/04/21 Lunch 2 Gram Sodium Diet [DIET] 02/04/21 14:04 Resuscitation Status Routine 02/04/21 15:15 Acetaminophen [TylenoL] 650 mg PO Q4H PRN Albuterol [Proventil Neb Soln] 2.5 mg NEB Q4H PRN Ondansetron [Zofran] 4 mg IV Q4H PRN Sodium Chloride 0.9% [Saline Flush] 10 ml FLUSH ASDIRECTED PRN polyethylene glycoL 3350 [MiraLAX] 17 gm PO DAILY PRN 02/04/21 15:15 Patient Status [ADT] Routine Ambulate [RC] QID Cardiac Monitoring [RC] Q6H Height and Weight [RC] DAILY Intake and Output [RC] QSHIFT Notify Provider Vital Signs [RC] ASDIRECTED Oxygen Therapy [RC] PRN Peripheral IV Care [RC] . DIRECTED RT Aerosol Therapy [RC] ASDIRECTED Up With Assistance [RC] ASDIRECTED Up to Chair [RC] QID VTE/DVT Education [RC] Per Unit Routine Vital Signs [RC] Q2H CULTURE RESPIRATORY + SMEAR [RM] Stat Peripheral IV Insertion Adult [OM.PC] Routine 02/04/21 16:00 Enoxaparin [Lovenox] 40 mg SUBCUT Q24H Levofloxacin/Dextrose 5%-Water [Levaquin in D5W 750 MG/150 ML] 750 mg Premix Bag 1 bag IV Q24H 02/05/21 09:00 Magnesium Oxide 400 mg PO BID Magnesium Sulfate/Water [Magnesium Sulfate in Water 2 GM/50 ML] 2 gm in 50 ml IV Q6H 02/05/21 10:15 Sodium Chloride 0.9% [Normal Saline] 1,000 ml IV ASDIRECTED 02/05/21 13:00 cefTRIAXone [Rocephin] 1 gm Sodium Chloride 0.9% [Normal Saline] 50 ml IV Q24H 02/05/21 17:00 Potassium Chloride [Klor-Con M20] 40 meq PO ONETIME ONE 02/06/21 05:00 BASIC METABOLIC PANEL,BMP [CHEM] Timed MAGNESIUM [CHEM] Timed - Plan Plan:: ASSESSMENT AND PLAN RIGHT LUNG PNEUMONIA WITH SEPSIS-stable since admission with no further hypotension, continues to deny significant respiratory symptoms. -IV norepinephrine for further hypotension -Blood cultures pending -IV ceftriaxone and levofloxacin, pending culture results ACUTE KIDNEY INJURY-renal function has improved significantly from admission, with IV hydration -Closely monitor urine output and renal function HYPERTENSION-blood pressure low secondary to sepsis -Hold outpatient antihypertensive therapy until blood pressure has stabilized MAINTENANCE ISSUES -DVT prophylaxis; Lovenox 40 mg subcu daily -GI prophylaxis; not indicated -Brady catheter; not indicated -Nutrition; 2 g sodium diet -Nicotine dependence; not required CODE STATUS-FULL CODE ADMISSION STATUS-patient will be admitted to inpatient status, expect at least a 2 night hospital stay for evaluation and management of problems as outlined above. At the time of this admission I do not reasonably expected evaluation and management of this problem will require more than a 96 hour hospital stay. DISPOSITION-anticipate discharge to home after the hospital stay. PRIMARY CARE PROVIDER-Dr. Knox
[2021-02-05] MEDS: cefTRIAXone 1 GM in Sodium Chloride 0.9% 50 ML IV SCH (13:59)
[2021-02-05] MEDS: traMADol 50 MG Tab PO PRN ×2 (14:21→23:18)
[2021-02-05] MEDS: Levofloxacin/Dextrose 5%-Water 750 MG in Premix Bag 1 BAG IV SCH (15:37)
[2021-02-05] MEDS: Enoxaparin 40 MG/0.4 ML Syringe SUBCUT SCH (15:38)
[2021-02-06] MEDS: traMADol 50 MG Tab PO PRN ×2 (05:29→23:52)
[2021-02-06] MEDS: Acetaminophen 325 MG Tab PO PRN ×3 (05:30→23:52)
[2021-02-06] MEDS: Magnesium Oxide 400 MG Tab PO SCH ×2 (08:51→20:19)
--- NOTE | 2021-02-06 08:56 | CR ---
CHEST: 2 view CLINICAL HISTORY:Fever COMPARISON:2017 FINDINGS: The heart size, pulmonary vascularity and hilar structures are normal. No infiltrate effusion or pneumothorax is seen. IMPRESSION: No acute cardiopulmonary process.
[2021-02-06] MEDS ORDERED: Potassium Chloride 20 MEQ Tab.ER PO ONE (09:00)
--- NOTE | 2021-02-06 11:06 | PCM.PN ---
- General Info Date of Service: 02/06/21 Subjective Update: Mr. Chanel has been stable over the last 24 hours and has noted some improvement, with less achiness and overall strength. Vital signs have been within desired range and he has remained afebrile. Functional Status: Reports: Tolerating Diet, Ambulating, Urinating - Review of Systems General: Reports: Weakness, Fatigue. Denies: Fever, Chills Pulmonary: Reports: Shortness of Breath, Wheezing. Denies: Cough, Sputum, Hemoptysis Cardiovascular: Reports: Dyspnea on Exertion. Denies: Chest Pain, Palpitations, Orthopnea, PND, Edema, Lightheadedness Gastrointestinal: Reports: No Symptoms Genitourinary: Reports: No Symptoms - Patient Data Vitals - Most Recent: Last Vital Signs Temp 97 F 02/06/21 04:00 Pulse 66 02/06/21 10:00 Resp 16 02/06/21 10:00 BP 106/68 02/06/21 10:00 Pulse Ox 96 02/06/21 10:00 Weight - Most Recent: 218 lb I&O - Last 24 Hours: Intake & Output 02/05/21 02/06/21 02/06/21 22:59 06:59 14:59 Intake Total 120 1605 Output Total 950 1150 Balance -830 455 Lab Results Last 24 Hours: Laboratory Results - last 24 hr 02/06/21 Range/Units 04:15 Sodium 138 L (140-148) mmol/L Potassium 3.5 L (3.6-5.2) mmol/L Chloride 101 (100-108) mmol/L Carbon Dioxide 27 (21-32) mmol/L Anion Gap 13.5 (5.0-14.0) mmol/L BUN 16 (7-18) mg/dL Creatinine 1.1 (0.8-1.3) mg/dL Est Cr Clr Drug Dosing 75.77 mL/min Estimated GFR (MDRD) > 60 (>60) Glucose 106 (74-106) mg/dL Calcium 8.5 (8.5-10.1) mg/dL Magnesium 1.9 D (1.8-2.4) mg/dL Adilson Results Last 24 Hours: Microbiology 02/06/21 00:45 Gram Stain - Final Sputum - Expectorated 02/04/21 12:45 Aerobic Blood Culture - Preliminary Blood - Venous NO GROWTH AFTER 1 DAY Anaerobic Blood Culture - Preliminary NO GROWTH AFTER 1 DAY 02/04/21 12:48 Aerobic Blood Culture - Preliminary Blood - Venous - Lab Draw NO GROWTH AFTER 1 DAY Anaerobic Blood Culture - Preliminary NO GROWTH AFTER 1 DAY Med Orders - Current: Current Medications Acetaminophen (Tylenol) 650 mg PO Q4H PRN PRN Reason: Pain (Mild 1-3)/fever Last Admin: 02/06/21 05:30 Dose: 650 mg Documented by: Albuterol (Proventil Neb Soln) 2.5 mg NEB Q4H PRN PRN Reason: Shortness Of Breath/wheezing Enoxaparin Sodium (Lovenox) 40 mg SUBCUT Q24H [facility] Last Admin: 02/05/21 15:38 Dose: 40 mg Documented by: Ceftriaxone Sodium 1 gm/ (Sodium Chloride) 50 mls @ 100 mls/hr IV Q24H [facility] Last Admin: 02/05/21 13:59 Dose: 100 mls/hr Documented by: Levofloxacin/Dextrose 750 mg/ (Premix) 150 mls @ 100 mls/hr IV Q24H [facility] Last Admin: 02/05/21 15:37 Dose: 100 mls/hr Documented by: Magnesium Oxide (Magnesium Oxide) 400 mg PO BID [facility] Last Admin: 02/06/21 08:51 Dose: 400 mg Documented by: Methylprednisolone Sodium Succinate (Solu-Medrol) 40 mg IVPUSH Q8H MARNI Ondansetron HCl (Zofran) 4 mg IV Q4H PRN PRN Reason: Nausea/Vomiting Polyethylene Glycol (Miralax) 17 gm PO DAILY PRN PRN Reason: Constipation Sodium Chloride (Saline Flush) 10 ml FLUSH ASDIRECTED PRN PRN Reason: Keep Vein Open Tramadol HCl (Ultram) 50 mg PO Q6H PRN PRN Reason: pain Last Admin: 02/06/21 05:29 Dose: 50 mg Documented by: Discontinued Medications Lactated Ringer's (Ringers, Lactated) 1,000 mls @ 999 mls/hr IV BOLUS ONE Stop: 02/04/21 13:50 Last Admin: 02/04/21 13:53 Dose: 999 mls/hr Documented by: Ceftriaxone Sodium 1 gm/ (Sodium Chloride) 50 mls @ 100 mls/hr IV ONETIME ONE Stop: 02/04/21 13:54 Last Admin: 02/04/21 13:54 Dose: 100 mls/hr Documented by: Sodium Chloride (Normal Saline) 1,000 mls @ 125 mls/hr IV ASDIRECTED [facility] Last Admin: 02/05/21 08:33 Dose: 125 mls/hr Documented by: Magnesium Sulfate (Magnesium Sulfate In Water 2 Gm/50 Ml) 2 gm in 50 mls @ 12.5 mls/hr IV Q6H [facility] Stop: 02/05/21 18:59 Last Admin: 02/05/21 16:57 Dose: 12.5 mls/hr Documented by: Sodium Chloride (Normal Saline) 1,000 mls @ 50 mls/hr IV ASDIRECTED [facility] Last Admin: 02/06/21 04:48 Dose: 50 mls/hr Documented by: Potassium Chloride (Klor-Con M20) 40 meq PO ONETIME ONE Stop: 02/04/21 15:46 Last Admin: 02/04/21 16:05 Dose: 40 meq Documented by: Potassium Chloride (Klor-Con M20) 40 meq PO ONETIME ONE Stop: 02/04/21 21:01 Last Admin: 02/04/21 21:32 Dose: 40 meq Documented by: Potassium Chloride (Klor-Con M20) 40 meq PO ONETIME ONE Stop: 02/05/21 09:01 Last Admin: 02/05/21 08:27 Dose: 40 meq Documented by: Potassium Chloride (Klor-Con M20) 40 meq PO ONETIME ONE Stop: 02/05/21 17:01 Last Admin: 02/05/21 17:08 Dose: 40 meq Documented by: Potassium Chloride (Klor-Con M20) 40 meq PO ONETIME ONE Stop: 02/06/21 09:01 Last Admin: 02/06/21 09:51 Dose: 40 meq Documented by: - Exam Quality Assessment: DVT Prophylaxis General: Alert, Oriented, Cooperative, Mild Distress Lungs: Normal Respiratory Effort, Wheezing. No: Crackles, Rales, Rhonchi Cardiovascular: Regular Rate, Regular Rhythm, No Murmurs GI/Abdominal Exam: Soft, Non-Tender, No Organomegaly, No Distention Extremities: Non-Tender, No Pedal Edema Skin: Warm, Dry, Intact - Patient Data Lab Results Last 24 hrs: Laboratory Results - last 24 hr 02/06/21 Range/Units 04:15 Sodium 138 L (140-148) mmol/L Potassium 3.5 L (3.6-5.2) mmol/L Chloride 101 (100-108) mmol/L Carbon Dioxide 27 (21-32) mmol/L Anion Gap 13.5 (5.0-14.0) mmol/L BUN 16 (7-18) mg/dL Creatinine 1.1 (0.8-1.3) mg/dL Est Cr Clr Drug Dosing 75.77 mL/min Estimated GFR (MDRD) > 60 (>60) Glucose 106 (74-106) mg/dL Calcium 8.5 (8.5-10.1) mg/dL Magnesium 1.9 D (1.8-2.4) mg/dL Result Diagrams: 02/05/21 04:00 02/06/21 04:15 Adilson Results Last 24 hrs: Microbiology 02/06/21 00:45 Gram Stain - Final Sputum - Expectorated 02/04/21 12:45 Aerobic Blood Culture - Preliminary Blood - Venous NO GROWTH AFTER 1 DAY Anaerobic Blood Culture - Preliminary NO GROWTH AFTER 1 DAY 02/04/21 12:48 Aerobic Blood Culture - Preliminary Blood - Venous - Lab Draw NO GROWTH AFTER 1 DAY Anaerobic Blood Culture - Preliminary NO GROWTH AFTER 1 DAY Sepsis Event Note - Evaluation Sepsis Screening Result: No Definite Risk - Focused Exam Vital Signs: Vital Signs Temp Pulse Resp BP Pulse Ox 02/06/21 10:00 66 16 106/68 96 02/06/21 08:00 63 13 94/62 97 02/06/21 06:00 14 107/61 97 02/06/21 04:00 97 F 16 106/75 97 02/06/21 02:00 15 104/62 95 02/06/21 00:00 98.2 F 19 104/65 97 - Problem List Review Problem List Initiated/Reviewed/Updated: Yes - My Orders Last 24 Hours: My Active Orders 02/05/21 13:00 cefTRIAXone [Rocephin] 1 gm Sodium Chloride 0.9% [Normal Saline] 50 ml IV Q24H 02/05/21 14:11 traMADol [Ultram] 50 mg PO Q6H PRN 02/06/21 00:45 CULTURE RESPIRATORY + SMEAR [RM] Stat 02/06/21 10:54 Convert IV to Saline Lock [OM.PC] Routine 02/06/21 10:58 Patient Status [ADT] Routine 02/06/21 11:00 methylPREDNISolone Sod Succ [Solu-MEDROL] 40 mg IVPUSH Q8H 02/07/21 05:00 BASIC METABOLIC PANEL,BMP [CHEM] Timed - Plan Plan:: ASSESSMENT AND PLAN RIGHT LUNG PNEUMONIA WITH SEPSIS-stable since admission with no further hypotension. Improved but does have some wheezing on examination today -Blood cultures pending -IV ceftriaxone and levofloxacin, pending culture results ACUTE KIDNEY INJURY-renal function has improved significantly from admission -Closely monitor urine output and renal function HYPERTENSION-blood pressure low secondary to sepsis -Hold outpatient antihypertensive therapy until blood pressure has stabilized MAINTENANCE ISSUES -DVT prophylaxis; Lovenox 40 mg subcu daily -GI prophylaxis; not indicated -Brady catheter; not indicated -Nutrition; 2 g sodium diet -Nicotine dependence; not required CODE STATUS-FULL CODE ADMISSION STATUS-patient will be admitted to inpatient status, expect at least a 2 night hospital stay for evaluation and management of problems as outlined above. At the time of this admission I do not reasonably expected evaluation and management of this problem will require more than a 96 hour hospital stay. DISPOSITION-anticipate discharge to home after the hospital stay. PRIMARY CARE PROVIDER-Dr. Knox
[2021-02-06] MEDS: methylPREDNISolone Sodium Succinate 40 MG/1 ML SDV IVPUSH SCH ×2 (11:21→20:19)
[2021-02-06] MEDS: cefTRIAXone 1 GM in Sodium Chloride 0.9% 50 ML IV SCH (14:01)
[2021-02-06] MEDS: Levofloxacin/Dextrose 5%-Water 750 MG in Premix Bag 1 BAG IV SCH (16:15)
[2021-02-06] MEDS: Enoxaparin 40 MG/0.4 ML Syringe SUBCUT SCH (16:21)
[2021-02-07] MEDS: methylPREDNISolone Sodium Succinate 40 MG/1 ML SDV IVPUSH SCH ×2 (03:00→10:49)
[2021-02-07] MEDS: Magnesium Oxide 400 MG Tab PO SCH (10:49)
--- NOTE | 2021-02-07 11:06 | PCM.DCSUM1 ---
Discharge Summary - Hospital Course Brief History: Mr. Chanel is a 65 year-old male admitted on 02/04 with hypotension and acute kidney injury in the setting of sepsis secondary to right lower lobe pneumonia. - Discharge Data Discharge Date: 02/07/21 Discharge Disposition: Home, Self-Care 01 Condition: Stable - Referral to Home Health Primary Care Physician: Nicolas Knox MD - Discharge Diagnosis/Problem(s) (1) Sepsis SNOMED Code(s): 19145536 ICD Code: A41.9 - SEPSIS, UNSPECIFIED ORGANISM Status: Acute Priority: High Current Visit: Yes Qualifiers: Sepsis type: sepsis due to unspecified organism Sepsis acute organ dysfunction status: with acute organ dysfunction Severe sepsis acute organ dysfunction type: acute renal failure Acute renal failure type: unspecified Severe sepsis shock status: without septic shock Qualified Code(s): A41.9 - Sepsis, unspecified organism; R65.20 - Severe sepsis without septic shock; N17.9 - Acute kidney failure, unspecified (2) CAP (community acquired pneumonia) SNOMED Code(s): 644120270 ICD Code: J18.9 - PNEUMONIA, UNSPECIFIED ORGANISM Status: Acute Priority: High Current Visit: Yes Onset Date: ~02/05/21 Qualifiers: Laterality: right Lung location: lower lobe of lung Qualified Code(s): J18.9 - Pneumonia, unspecified organism - Patient Summary/Data Hospital Course: 65 year-old male admitted on 02/04 with sepsis secondary to right lower lobe pneumonia. He received IV fluids with order for pressor support as needed. He did not require pressors. He was placed on IV rocephin and levaquin. Over the course of his hospitlization, his presenting symptoms improved. He felt much better and requested hospital discharge on 02/07. His blood pressures had improved, though remained in the 100s-130s systolic off home antihypertensive medications. On 02/07, the patient was discharged in stable condition with prescription for additional 3 days of oral levaquin 750 mg daily to complete his antibiotic course. He was instructed to hold his antihypertensive medications until follow-up with his PCP later this week. At that appointment, blood pressure can be reassessed and plan for restarting antihypertensive medications can be instituted. - Patient Instructions Diet: Regular Diet as Tolerated Activity: As Tolerated - Discharge Plan *PRESCRIPTION DRUG MONITORING PROGRAM REVIEWED*: Not Applicable *COPY OF PRESCRIPTION DRUG MONITORING REPORT IN PATIENT AVLDEZ: Not Applicable Home Medications: Home Meds Atenolol/Chlorthalidone [Tenoretic 50] 1 tab PO DAILY 05/08/15 [History] Hydroxychloroquine Sulfate [Plaquenil] 200 mg PO DAILY 05/08/15 [History] Lisinopril 1 tab PO DAILY 07/02/19 [History] Oxygen Therapy Mode: Room Air Patient Handouts: Levofloxacin tablets, Community-Acquired Pneumonia, Adult, Sepsis, Diagnosis, Adult Referrals: Nicolas Knox MD [Primary Care Provider] - Jamia Gilbert MD [Ordering Only Provider] - (Within one week post hospital follow up. [facility] will call you with appointment date/time.) - Discharge Summary/Plan Comment DC Time >30 min.: Yes (34 minutes) - Patient Data Vitals - Most Recent: Last Vital Signs Temp 96.6 F L 02/07/21 07:00 Pulse 72 02/07/21 07:00 Resp 18 02/07/21 07:00 BP 133/65 02/07/21 07:00 Pulse Ox 95 02/07/21 07:00 Weight - Most Recent: 218 lb 0.595 oz I&O - Last 24 hours: Intake & Output 02/06/21 02/07/21 02/07/21 22:59 06:59 14:59 Intake Total 150 1120 100 Output Total 600 830 Balance -450 290 100 Lab Results - Last 24 hrs: Laboratory Results - last 24 hr 02/07/21 Range/Units 05:00 Sodium 139 L (140-148) mmol/L Potassium 4.0 (3.6-5.2) mmol/L Chloride 101 (100-108) mmol/L Carbon Dioxide 26 (21-32) mmol/L Anion Gap 16.0 H (5.0-14.0) mmol/L BUN 19 H (7-18) mg/dL Creatinine 1.0 (0.8-1.3) mg/dL Est Cr Clr Drug Dosing 83.34 mL/min Estimated GFR (MDRD) > 60 (>60) Glucose 170 H (74-106) mg/dL Calcium 9.1 (8.5-10.1) mg/dL VIOLETA Results - Last 24 hrs: Microbiology 02/04/21 12:45 Aerobic Blood Culture - Preliminary Blood - Venous NO GROWTH AFTER 2 DAYS Anaerobic Blood Culture - Preliminary NO GROWTH AFTER 2 DAYS 02/04/21 12:48 Aerobic Blood Culture - Preliminary Blood - Venous - Lab Draw NO GROWTH AFTER 2 DAYS Anaerobic Blood Culture - Preliminary NO GROWTH AFTER 2 DAYS Med Orders - Current: Current Medications Acetaminophen (Acetaminophen 325 Mg Tab) 650 mg PO Q4H PRN PRN Reason: Pain (Mild 1-3)/fever Last Admin: 02/06/21 23:52 Dose: 650 mg Documented by: Albuterol (Albuterol 0.083% 2.5 Mg/3 Ml Neb Soln) 2.5 mg NEB Q4H PRN PRN Reason: Shortness Of Breath/wheezing Enoxaparin Sodium (Lovenox) 40 mg SUBCUT Q24H [facility] Last Admin: 02/06/21 16:21 Dose: 40 mg Documented by: Ceftriaxone Sodium 1 gm/ (Sodium Chloride) 50 mls @ 100 mls/hr IV Q24H [facility] Last Admin: 02/06/21 14:01 Dose: 100 mls/hr Documented by: Levofloxacin/Dextrose 750 mg/ (Premix) 150 mls @ 100 mls/hr IV Q24H [facility] Last Admin: 02/06/21 16:15 Dose: 100 mls/hr Documented by: Magnesium Oxide (Magnesium Oxide) 400 mg PO BID [facility] Last Admin: 02/07/21 10:49 Dose: 400 mg Documented by: Methylprednisolone Sodium Succinate (Solu-Medrol) 40 mg IVPUSH Q8H [facility] Last Admin: 02/07/21 10:49 Dose: 40 mg Documented by: Ondansetron HCl (Ondansetron 4 Mg/2 Ml Sdv) 4 mg IV Q4H PRN PRN Reason: Nausea/Vomiting Polyethylene Glycol (Polyethylene Glycol 3350 Powder 17 Gm Packet) 17 gm PO DAILY PRN PRN Reason: Constipation Sodium Chloride (Saline Flush) 10 ml FLUSH ASDIRECTED PRN PRN Reason: Keep Vein Open Tramadol HCl (Tramadol 50 Mg Tab) 50 mg PO Q6H PRN PRN Reason: pain Last Admin: 02/06/21 23:52 Dose: 50 mg Documented by: Discontinued Medications Lactated Ringer's (Ringers, Lactated) 1,000 mls @ 999 mls/hr IV BOLUS ONE Stop: 02/04/21 13:50 Last Admin: 02/04/21 13:53 Dose: 999 mls/hr Documented by: Ceftriaxone Sodium 1 gm/ (Sodium Chloride) 50 mls @ 100 mls/hr IV ONETIME ONE Stop: 02/04/21 13:54 Last Admin: 02/04/21 13:54 Dose: 100 mls/hr Documented by: Sodium Chloride (Normal Saline) 1,000 mls @ 125 mls/hr IV ASDIRECTED [facility] Last Admin: 02/05/21 08:33 Dose: 125 mls/hr Documented by: Magnesium Sulfate (Magnesium Sulfate In Water 2 Gm/50 Ml) 2 gm in 50 mls @ 12.5 mls/hr IV Q6H [facility] Stop: 02/05/21 18:59 Last Admin: 02/05/21 16:57 Dose: 12.5 mls/hr Documented by: Sodium Chloride (Normal Saline) 1,000 mls @ 50 mls/hr IV ASDIRECTED [facility] Last Admin: 02/06/21 04:48 Dose: 50 mls/hr Documented by: Potassium Chloride (Klor-Con M20) 40 meq PO ONETIME ONE Stop: 02/04/21 15:46 Last Admin: 02/04/21 16:05 Dose: 40 meq Documented by: Potassium Chloride (Klor-Con M20) 40 meq PO ONETIME ONE Stop: 02/04/21 21:01 Last Admin: 02/04/21 21:32 Dose: 40 meq Documented by: Potassium Chloride (Klor-Con M20) 40 meq PO ONETIME ONE Stop: 02/05/21 09:01 Last Admin: 02/05/21 08:27 Dose: 40 meq Documented by: Potassium Chloride (Klor-Con M20) 40 meq PO ONETIME ONE Stop: 02/05/21 17:01 Last Admin: 02/05/21 17:08 Dose: 40 meq Documented by: Potassium Chloride (Klor-Con M20) 40 meq PO ONETIME ONE Stop: 02/06/21 09:01 Last Admin: 02/06/21 09:51 Dose: 40 meq Documented by:
[2021-02-07 11:30] VITALS: BP 97/51; PULSE 76
== END 2021-02-07 12:48 | disposition home or self-care (01) | DRG 871 ==
LOC: JP.ED 11:49 → JP.ICU 14:02 → JP.MS 02-06 17:52
PROVIDERS: ADMIT Hospitalist; ATTEND Hospitalist
DX: A41.9 Sepsis, unspecified organism (principal); J18.9 Pneumonia, unspecified organism; N17.9 Acute kidney failure, unspecified; R65.20 Severe sepsis without septic shock; Z96.659 Presence of unspecified artificial knee joint; H54.7 Unspecified visual loss; E78.00 Pure hypercholesterolemia, unspecified; I10 Essential (primary) hypertension; N40.0 Benign prostatic hyperplasia without lower urinary tract symptoms; M06.9 Rheumatoid arthritis, unspecified; Z79.899 Other long term (current) drug therapy; Z88.0 Allergy status to penicillin; Z98.49 Cataract extraction status, unspecified eye; Z87.891 Personal history of nicotine dependence; Z20.822 Contact with and (suspected) exposure to COVID-19
CPT/HCPCS: 0241U; 36415; 71046; 80048; 80053; 81001; 83605; 83735; 84145; 85025; 86140; 87040; 87070; 87205; 96365; 99285; 99285-25; A9270-GY; J0696; J1650; J1956; J2920; J3475; J7030; J7120

== ENCOUNTER 2023-06-08 13:17 | Emergency (ER) | payer OTHER ==
[2023-06-08] MEDS ORDERED: Sodium Chloride 0.9% 10 ML Syringe FLUSH PRN (15:01)
[2023-06-08] MEDS ORDERED: Ondansetron 4 MG/2 ML SDV IVPUSH ONE (15:02)
[2023-06-08] MEDS ORDERED: Sodium Chloride 0.9% 1,000 ML IV ONE ×2 (15:06→16:01)
[2023-06-08 15:18] LABS: BASOPHILS ABSOLUTE AUTO 0.08 K/uL (0.00-0.10); BASOPHILS PERCENT AUTO 0.8 % (0.1-1.3); EOSINOPHILS ABSOLUTE AUTO 0.17 K/uL (0.00-0.40); EOSINOPHILS PERCENT AUTO 1.7 % (0.0-5.4); HEMATOCRIT 34.8 % (38.4-49.7); HEMOGLOBIN 12.2 g/dL (12.9-16.9); IMMATURE GRAN ABSOLUTE AUTO 0.04 K/uL (0.00-0.23); IMMATURE GRAN PERCENT AUTO 0.4 % (0.0-0.7); LYMPHOCYTES ABSOLUTE AUTO 1.33 K/uL (0.8-3.3); LYMPHOCYTES PERCENT AUTO 13.2 % (11.4-47.7); MEAN CORPUSCULAR HEMOGLOBIN 33.9 pg (31.6-35.5); MEAN CORPUSCULAR HGB CONC 35.1 g/dL (31.6-35.5); MEAN CORPUSCULAR VOLUME 96.7 fL (81.4-99.0); MONOCYTES ABSOLUTE AUTO 0.83 K/uL (0.20-0.90); MONOCYTES PERCENT AUTO 8.2 % (3.3-12.6); NEUTROPHILS ABSOLUTE AUTO 7.64 K/uL (1.0-7.6); NEUTROPHILS PERCENT AUTO 75.7 % (40.0-78.1); PLATELET COUNT,PLT 277 K/uL (130-375); WHITE BLOOD CELL COUNT,WBC 10.1 K/uL (3.2-11.0)
[2023-06-08 15:39] LABS: A/G RATIO 1.3 (1.2-2.2); ALANINE AMINOTRANSFERASE,ALT 31 U/L (12-78); ALBUMIN 3.9 g/dL (3.4-5.0); ALKALINE PHOSPHATASE 60 U/L (46-116); ASPARTATE AMNIOTRANSFERASE,AST 29 U/L (15-37); BILIRUBIN TOTAL 0.9 mg/dL (0.2-1.0); BLOOD UREA NITROGEN,BUN 29 mg/dL (7-18); CALCIUM 8.8 mg/dL (8.5-10.1); CARBON DIOXIDE,CO2 27 mmol/L (21-32); CHLORIDE,CL 95 mmol/L (100-108); CREATININE 2.1 mg/dL (0.8-1.3); EST CRCL DRUG DOSING (CG) 36.44 mL/min; ESTIMATED GFR 33 mL/min (>60); GLUCOSE RANDOM 88 mg/dL (74-106); POTASSIUM,K 3.2 mmol/L (3.6-5.2); SODIUM,NA 134 mmol/L (140-148)
[2023-06-08 15:42] LABS: ANION GAP 15.2 mmol/L (5.0-14.0)
[2023-06-08] MEDS ORDERED: Potassium Chloride 20 MEQ Tab.ER PO ONE (16:00)
[2023-06-08 16:17] LABS: APPEARANCE,URINE CLOUDY (CLEAR); BILIRUBIN,URINE NEGATIVE (NEGATIVE); COLOR,URINE YELLOW (YELLOW); GLUCOSE,URINE NEGATIVE (NEGATIVE); KETONES,URINE TRACE mg/dL (NEGATIVE); LEUKOCYTE ESTERASE,URINE NEGATIVE (NEGATIVE); NITRITE,URINE NEGATIVE (NEGATIVE); OCCULT BLOOD,URINE NEGATIVE (NEGATIVE); PH,URINE 5.5 (5.0-8.0); PROTEIN,URINE TRACE mg/dL (NEGATIVE); UROBILINOGEN,URINE 0.2 EU/dL (0.2-1.0)
[2023-06-08 16:22] LABS: AMORPHOUS SEDIMENT,URINE NOT SEEN; BACTERIA,URINE FEW; EPITHELIAL CELLS,URINE RARE; MUCUS,URINE NOT SEEN; RBC,URINE 0-5 (0-5); WBC,URINE 0-5 (0-5)
[2023-06-08 17:21] VITALS: BP 132/53; PULSE 61
[2023-06-08 17:58] LABS: ANION GAP 12.3 mmol/L (5.0-14.0); CREATININE 1.8 mg/dL (0.8-1.3); EST CRCL DRUG DOSING (CG) 42.51 mL/min; POTASSIUM,K 3.3 mmol/L (3.6-5.2)
== END 2023-06-08 18:53 | disposition home or self-care (01) ==
LOC: JP.ED 13:17
DX: N17.9 Acute kidney failure, unspecified (principal); E87.6 Hypokalemia; E78.00 Pure hypercholesterolemia, unspecified; I10 Essential (primary) hypertension; Z88.0 Allergy status to penicillin; Z79.899 Other long term (current) drug therapy; Z72.0 Tobacco use
CPT/HCPCS: 36415; 80048; 80053; 81001; 83605; 85025; 93005; 96361; 96374; 99285; A9270; J2405; J3490; J7030

== ENCOUNTER 2023-11-07 13:38 | Emergency (ER) | payer OTHER ==
[2023-11-07 13:53] VITALS: BP 127/72; PULSE 70
[2023-11-07 14:30] LABS: BASOPHILS ABSOLUTE AUTO 0.08 K/uL (0.00-0.10); BASOPHILS PERCENT AUTO 1.7 % (0.1-1.3); EOSINOPHILS ABSOLUTE AUTO 0.15 K/uL (0.00-0.40); EOSINOPHILS PERCENT AUTO 3.1 % (0.0-5.4); HEMATOCRIT 36.9 % (38.4-49.7); IMMATURE GRAN PERCENT AUTO 0.2 % (0.0-0.7); LYMPHOCYTES PERCENT AUTO 18.7 % (11.4-47.7); MEAN CORPUSCULAR HEMOGLOBIN 34.2 pg (31.6-35.5); MEAN CORPUSCULAR HGB CONC 35.2 g/dL (31.6-35.5); MEAN CORPUSCULAR VOLUME 97.1 fL (81.4-99.0); MONOCYTES ABSOLUTE AUTO 0.95 K/uL (0.20-0.90); MONOCYTES PERCENT AUTO 19.7 % (3.3-12.6); NEUTROPHILS ABSOLUTE AUTO 2.73 K/uL (1.0-7.6); NEUTROPHILS PERCENT AUTO 56.6 % (40.0-78.1); PLATELET COUNT,PLT 260 K/uL (130-375); WHITE BLOOD CELL COUNT,WBC 4.8 K/uL (3.2-11.0)
[2023-11-07 14:31] LABS: IMMATURE GRAN ABSOLUTE AUTO 0.01 K/uL (0.00-0.23)
[2023-11-07 14:54] LABS: A/G RATIO 1.1 (1.2-2.2); ALANINE AMINOTRANSFERASE,ALT 25 U/L (12-78); ALBUMIN 3.6 g/dL (3.4-5.0); ALKALINE PHOSPHATASE 96 U/L (46-116); ANION GAP 10.5 mmol/L (5.0-14.0); ASPARTATE AMNIOTRANSFERASE,AST 26 U/L (15-37); BILIRUBIN TOTAL 0.4 mg/dL (0.2-1.0); BLOOD UREA NITROGEN,BUN 19 mg/dL (7-18); CALCIUM 8.8 mg/dL (8.5-10.1); CARBON DIOXIDE,CO2 28 mmol/L (21-32); CHLORIDE,CL 102 mmol/L (100-108); CREATININE 1.3 mg/dL (0.8-1.3); EST CRCL DRUG DOSING (CG) 58.03 mL/min; ESTIMATED GFR 59 mL/min (>60); GLUCOSE RANDOM 109 mg/dL (74-106); POTASSIUM,K 3.5 mmol/L (3.6-5.2); PROTEIN TOTAL,TP 6.8 g/dL (6.4-8.2); SODIUM,NA 137 mmol/L (140-148); TROPONIN I HIGH SENSITIVITY 19.7 pg/mL (<=60.3)
[2023-11-07 15:48] LABS: APPEARANCE,URINE CLEAR (CLEAR); BILIRUBIN,URINE NEGATIVE (NEGATIVE); COLOR,URINE YELLOW (YELLOW); GLUCOSE,URINE NEGATIVE (NEGATIVE); KETONES,URINE NEGATIVE (NEGATIVE); LEUKOCYTE ESTERASE,URINE NEGATIVE (NEGATIVE); NITRITE,URINE NEGATIVE (NEGATIVE); OCCULT BLOOD,URINE NEGATIVE (NEGATIVE); PH,URINE 5.5 (5.0-8.0); PROTEIN,URINE NEGATIVE (NEGATIVE); UROBILINOGEN,URINE 0.2 EU/dL (0.2-1.0)
[2023-11-07 15:55] LABS: AMORPHOUS SEDIMENT,URINE RARE; BACTERIA,URINE NOT SEEN; EPITHELIAL CELLS,URINE RARE; MUCUS,URINE RARE; RBC,URINE 0-5 (0-5); WBC,URINE 0-5 (0-5)
[2023-11-07 16:47] LABS: INFLUENZA A NAA NEGATIVE (NEGATIVE); INFLUENZA B NAA NEGATIVE (NEGATIVE); RESPIRATORY SYNCYTIAL VIR NAA NEGATIVE (NEGATIVE)
[2023-11-07 16:48] LABS: CORONAVIRUS COVID-19 NAA POSITIVE (NEGATIVE)
== END 2023-11-07 17:30 | disposition home or self-care (01) ==
LOC: JP.ED 13:38
DX: U07.1 COVID-19 (principal); I10 Essential (primary) hypertension; E78.00 Pure hypercholesterolemia, unspecified; F17.210 Nicotine dependence, cigarettes, uncomplicated; Z79.899 Other long term (current) drug therapy; Z88.0 Allergy status to penicillin
CPT/HCPCS: 0241U; 36415; 71046; 80053; 81001; 84484; 85025; 99285

== ENCOUNTER 2025-07-06 09:25 | Emergency (ER) | payer OTHER ==
[2025-07-06] MEDS ORDERED: Iopamidol 612 MG/ML 100 ML Bottle IV ONE (10:07)
[2025-07-06] MEDS: Ondansetron 4 MG/2 ML SDV IVPUSH PRN (10:08)
[2025-07-06] MEDS: Sodium Chloride 0.9% 10 ML Syringe FLUSH ONE ×2 (10:09→10:41)
[2025-07-06 10:10] LABS: BASOPHILS ABSOLUTE AUTO 0.09 K/uL (0.00-0.10); BASOPHILS PERCENT AUTO 0.6 % (0.1-1.3); EOSINOPHILS ABSOLUTE AUTO 0.21 K/uL (0.00-0.40); EOSINOPHILS PERCENT AUTO 1.5 % (0.0-5.4); IMMATURE GRAN ABSOLUTE AUTO 0.06 K/uL (0.00-0.23); IMMATURE GRAN PERCENT AUTO 0.4 % (0.0-0.7); LYMPHOCYTES ABSOLUTE AUTO 0.90 K/uL (0.8-3.3); LYMPHOCYTES PERCENT AUTO 6.5 % (11.4-47.7); MONOCYTES ABSOLUTE AUTO 1.14 K/uL (0.20-0.90); MONOCYTES PERCENT AUTO 8.2 % (3.3-12.6); NEUTROPHILS ABSOLUTE AUTO 11.53 K/uL (1.0-7.6); NEUTROPHILS PERCENT AUTO 82.8 % (40.0-78.1); PLATELET COUNT,PLT 284 K/uL (130-375); RED BLOOD CELL COUNT 3.49 M/uL (4.14-5.76); WHITE BLOOD CELL COUNT,WBC 13.9 K/uL (3.2-11.0)
[2025-07-06 10:16] VITALS: BP 140/70; PULSE 61
[2025-07-06] MEDS: Iopamidol 755 Mg/ML 100 ML Bottle IV SCH (10:41)
[2025-07-06 10:47] LABS: INR 1.0
[2025-07-06 10:51] LABS: A/G RATIO 1.2 (1.2-2.2); ALANINE AMINOTRANSFERASE,ALT 43 U/L (12-78); ASPARTATE AMNIOTRANSFERASE,AST 35 U/L (15-37); BILIRUBIN TOTAL 1.0 mg/dL (0.2-1.0); BLOOD UREA NITROGEN,BUN 26 mg/dL (7-18); CARBON DIOXIDE,CO2 32 mmol/L (21-32); CHLORIDE,CL 102 mmol/L (100-108); CREATININE 1.4 mg/dL (0.8-1.3); EST CRCL DRUG DOSING (CG) 53.12 mL/min; ESTIMATED GFR 54 mL/min (>60); GLUCOSE RANDOM 104 mg/dL (74-106); POTASSIUM,K 3.2 mmol/L (3.6-5.2); PROTEIN TOTAL,TP 6.7 g/dL (6.4-8.2); SODIUM,NA 141 mmol/L (140-148)
[2025-07-06] MEDS: Lidocaine 1% with EPINEPHrine 1:100,000 20 ML MDV INJECT ONE (11:48)
== END 2025-07-06 12:38 | disposition home or self-care (01) ==
LOC: JP.ED 09:25
DX: K61.1 Rectal abscess (principal); I10 Essential (primary) hypertension; E78.00 Pure hypercholesterolemia, unspecified; F17.200 Nicotine dependence, unspecified, uncomplicated; Z79.899 Other long term (current) drug therapy; Z88.0 Allergy status to penicillin
CPT/HCPCS: 36415; 46040; 74177; 80053; 85025; 85610; 87070; 87075; 87205; 96374; 96375; 96376; 99284; J2004; J2270; J2405; Q9967; 87077; 87186

== ENCOUNTER 2025-08-06 10:29 | Emergency (ER) | payer OTHER ==
[2025-08-06 10:43] VITALS: PULSE 60
[2025-08-06 12:41] VITALS: BP 137/58
[2025-08-06 13:06] LABS: BASOPHILS ABSOLUTE AUTO 0.10 K/uL (0.00-0.10); BASOPHILS PERCENT AUTO 1.1 % (0.1-1.3); EOSINOPHILS ABSOLUTE AUTO 0.40 K/uL (0.00-0.40); EOSINOPHILS PERCENT AUTO 4.6 % (0.0-5.4); IMMATURE GRAN ABSOLUTE AUTO 0.03 K/uL (0.00-0.23); IMMATURE GRAN PERCENT AUTO 0.3 % (0.0-0.7); LYMPHOCYTES ABSOLUTE AUTO 1.19 K/uL (0.8-3.3); LYMPHOCYTES PERCENT AUTO 13.7 % (11.4-47.7); MONOCYTES ABSOLUTE AUTO 1.01 K/uL (0.20-0.90); MONOCYTES PERCENT AUTO 11.6 % (3.3-12.6); NEUTROPHILS ABSOLUTE AUTO 5.97 K/uL (1.0-7.6); NEUTROPHILS PERCENT AUTO 68.7 % (40.0-78.1); PLATELET COUNT,PLT 235 K/uL (130-375); RED BLOOD CELL COUNT 3.37 M/uL (4.14-5.76); WHITE BLOOD CELL COUNT,WBC 8.7 K/uL (3.2-11.0)
== END 2025-08-06 14:28 | disposition home or self-care (01) ==
LOC: JP.ED 10:29
DX: L02.31 Cutaneous abscess of buttock (principal); E78.00 Pure hypercholesterolemia, unspecified; I10 Essential (primary) hypertension; Z88.0 Allergy status to penicillin; Z79.899 Other long term (current) drug therapy
CPT/HCPCS: 36415; 85025; 99283

== ENCOUNTER 2025-08-07 06:35 | Inpatient (IN) | payer MEDICARE, OTHER ==
[2025-08-07 07:33] LABS: PLATELET COUNT,PLT 266 K/uL (130-375); RED BLOOD CELL COUNT 3.97 M/uL (4.14-5.76); WHITE BLOOD CELL COUNT,WBC 15.4 K/uL (3.2-11.0)
[2025-08-07 07:33] LABS: BASE EXCESS VENOUS 0.6 mm/L; BICARBONATE,VENOUS 25.5 mmol/L; O2 SATURATION VENOUS 28.3; OXYHEMOGLOBIN 27.4 %; PCO2 VENOUS 44.0 mm/Hg; PH,VENOUS 7.381 (7.350-7.450); TOTAL HEMOGLOBIN 14.2 g/dL (13.5-18.0)
[2025-08-07 07:35] LABS: PO2 VENOUS 21.5 mm/Hg
[2025-08-07 07:52] LABS: BAND ABSOLUTE MAN 1.69 K/uL; BAND PERCENT MAN 11 % (5-11); LYMPHOCYTES ABSOLUTE MAN 0.31 K/uL (0.8-3.3); LYMPHOCYTES PERCENT MAN 2 % (24-44); MONOCYTES ABSOLUTE MAN 0.62 K/uL (0.20-0.90); MONOCYTES PERCENT MAN 4 % (2-6); NEUTROPHILS ABSOLUTE MAN 12.78 K/uL (1.0-7.6); SEG NEUTROPHILS PERCENT MAN 83 % (36-66)
[2025-08-07 07:58] LABS: ALANINE AMINOTRANSFERASE,ALT 146 U/L (12-78); ASPARTATE AMNIOTRANSFERASE,AST 95 U/L (15-37); BILIRUBIN TOTAL 1.3 mg/dL (0.2-1.0); BLOOD UREA NITROGEN,BUN 33 mg/dL (7-18); CARBON DIOXIDE,CO2 26 mmol/L (21-32); CHLORIDE,CL 95 mmol/L (100-108); CREATININE 3.4 mg/dL (0.8-1.3); EST CRCL DRUG DOSING (CG) 21.87 mL/min; ESTIMATED GFR 19 mL/min (>60); GLUCOSE RANDOM 141 mg/dL (74-106); POTASSIUM,K 3.2 mmol/L (3.6-5.2); PROTEIN TOTAL,TP 7.4 g/dL (6.4-8.2); SODIUM,NA 136 mmol/L (140-148)
[2025-08-07 07:59] LABS: A/G RATIO 1.0 (1.2-2.2)
[2025-08-07] MEDS: Sodium Chloride 0.9% 10 ML Syringe FLUSH ONE (08:26)
[2025-08-07] MEDS: Ondansetron 4 MG/2 ML SDV IVPUSH ONE (08:26)
[2025-08-07] MEDS: Iopamidol 612 MG/ML 100 ML Bottle IV SCH (09:37)
[2025-08-07] MEDS: Lidocaine 1% with EPINEPHrine 1:100,000 20 ML MDV INJECT ONE (10:53)
[2025-08-07] MEDS ORDERED: methylPREDNISolone Sod Succ 125 MG in Dextrose 5% in Water 100 ML IV ONE (11:13)
[2025-08-07] MEDS ORDERED: Naloxone 0.4 MG/ML SDV IVPUSH PRN (11:31)
[2025-08-07] MEDS: methylPREDNISolone Sodium Succinate 125 MG/2 ML SDV IVPUSH ONE (11:37)
[2025-08-07] MEDS ORDERED: Sennosides/Docusate Sodium 50-8.6 MG Tab PO PRN (15:40)
[2025-08-07] MEDS ORDERED: Ondansetron 4 MG Tab.DIS PO PRN (15:40)
[2025-08-07] MEDS ORDERED: Magnesium Hydroxide 400 MG/5 ML Susp 30 ML Cup PO PRN (15:40)
[2025-08-07] MEDS ORDERED: Ondansetron 4 MG/2 ML SDV IV PRN (15:40)
[2025-08-07] MEDS: NS + KCl 20mEq/L 1,000 ML IV SCH (16:13)
[2025-08-07] MEDS: Magnesium Sulfate 2 GM/50 mL 2 GM in Premix Bag 1 BAG IV SCH (17:05)
[2025-08-07 18:17] LABS: APPEARANCE,URINE SLIGHTLY CLOUDY (CLEAR); GLUCOSE,URINE NEGATIVE (NEGATIVE); OCCULT BLOOD,URINE MODERATE (NEGATIVE)
[2025-08-07 18:28] LABS: SQUAMOUS EPITHELIAL CELLS,UR FEW /HPF; UROTHELIAL CELLS,URINE NOT SEEN /HPF
[2025-08-07] MEDS: Lactobacillus Rhamnosus GG (Probiotic) Cap PO SCH (20:17)
[2025-08-08 04:49] LABS: PLATELET COUNT,PLT 190.0 K/uL (130-375); RED BLOOD CELL COUNT 2.89 M/uL (4.14-5.76); WHITE BLOOD CELL COUNT,WBC 12.6 K/uL (3.2-11.0)
[2025-08-08 05:08] LABS: A/G RATIO 0.9 (1.2-2.2); ALANINE AMINOTRANSFERASE,ALT 87 U/L (12-78); ASPARTATE AMNIOTRANSFERASE,AST 50 U/L (15-37); BILIRUBIN TOTAL 0.3 mg/dL (0.2-1.0); BLOOD UREA NITROGEN,BUN 39 mg/dL (7-18); CARBON DIOXIDE,CO2 22 mmol/L (21-32); CHLORIDE,CL 102 mmol/L (100-108); CREATININE 2.7 mg/dL (0.8-1.3); EST CRCL DRUG DOSING (CG) 27.54 mL/min; ESTIMATED GFR 24 mL/min (>60); GLUCOSE RANDOM 134 mg/dL (74-106); POTASSIUM,K 3.6 mmol/L (3.6-5.2); PROTEIN TOTAL,TP 5.6 g/dL (6.4-8.2); SODIUM,NA 133 mmol/L (140-148)
[2025-08-08] MEDS ORDERED: Non-Formulary Medication 1 Each (Bicalutamide [Casodex] 50 MG Tablet) PO SCH (09:00)
[2025-08-08] MEDS ORDERED: LEFLUNOMIDE 20 MG PO SCH (09:00)
[2025-08-09] MEDS: NS + KCl 20mEq/L 1,000 ML IV SCH (01:50)
[2025-08-09 05:54] LABS: PLATELET COUNT,PLT 198.0 K/uL (130-375); RED BLOOD CELL COUNT 2.84 M/uL (4.14-5.76); WHITE BLOOD CELL COUNT,WBC 11.6 K/uL (3.2-11.0)
[2025-08-09 06:27] LABS: BLOOD UREA NITROGEN,BUN 29.0 mg/dL (7-18); CARBON DIOXIDE,CO2 23.0 mmol/L (21-32); CHLORIDE,CL 103.0 mmol/L (100-108); CREATININE 1.6 mg/dL (0.8-1.3); EST CRCL DRUG DOSING (CG) 46.48 mL/min; ESTIMATED GFR 46.0 mL/min (>60); GLUCOSE RANDOM 125.0 mg/dL (74-106); POTASSIUM,K 3.5 mmol/L (3.6-5.2); SODIUM,NA 134.0 mmol/L (140-148)
[2025-08-09] MEDS: Potassium Chloride 20 MEQ Tab.ER PO ONE (08:43)
[2025-08-09 14:38] VITALS: BP 148/74; PULSE 64
== END 2025-08-09 15:25 | disposition home or self-care (01) | DRG 854 ==
LOC: JP.ED 06:35 → JP.MS 14:45
PROVIDERS: ADMIT Internal Medicine; ATTEND Internal Medicine
PROC: 3E03329 Introduction of Other Anti-infective into Peripheral Vein, Percutaneous Approach (ICD-10-PCS; principal; 2025-08-07)
PROC: 0D9P0ZZ Drainage of Rectum, Open Approach (ICD-10-PCS; principal; 2025-08-07)
DX: I95.9 Hypotension, unspecified (principal); R19.7 Diarrhea, unspecified; A41.9 Sepsis, unspecified organism; L02.31 Cutaneous abscess of buttock; N17.9 Acute kidney failure, unspecified; E86.0 Dehydration; K52.9 Noninfective gastroenteritis and colitis, unspecified; E87.6 Hypokalemia; I10 Essential (primary) hypertension; H54.7 Unspecified visual loss; E78.00 Pure hypercholesterolemia, unspecified; C61 Malignant neoplasm of prostate; F17.200 Nicotine dependence, unspecified, uncomplicated; N40.0 Benign prostatic hyperplasia without lower urinary tract symptoms; M54.9 Dorsalgia, unspecified; G89.29 Other chronic pain; Z96.659 Presence of unspecified artificial knee joint; Z88.0 Allergy status to penicillin; Z79.899 Other long term (current) drug therapy; Z98.49 Cataract extraction status, unspecified eye; Z79.52 Long term (current) use of systemic steroids
CPT/HCPCS: 36415; 71275; 74177; 80053; 82803; 83605 ×2; 83735; 85025; 87040 ×2; 87070; 87075; 87077 ×2; 87186 ×2; 87205; J1335; J2004; J2270; J2405; J2919; J7030 ×4; Q9967; 80048; 81001; 85027; 87046; 87427; 87493; 99223; 99232; 99238; 99285; A9270-GY; J0696; J3475; J3480; J7512

== ENCOUNTER 2025-10-02 14:50 | Emergency (ER) | payer OTHER ==
[2025-10-02 16:40] LABS: BASOPHILS ABSOLUTE AUTO 0.05 K/uL (0.00-0.10); BASOPHILS PERCENT AUTO 0.5 % (0.1-1.3); EOSINOPHILS ABSOLUTE AUTO 0.07 K/uL (0.00-0.40); EOSINOPHILS PERCENT AUTO 0.7 % (0.0-5.4); IMMATURE GRAN ABSOLUTE AUTO 0.06 K/uL (0.00-0.23); IMMATURE GRAN PERCENT AUTO 0.6 % (0.0-0.7); LYMPHOCYTES ABSOLUTE AUTO 1.28 K/uL (0.8-3.3); LYMPHOCYTES PERCENT AUTO 12.0 % (11.4-47.7); MONOCYTES ABSOLUTE AUTO 1.20 K/uL (0.20-0.90); MONOCYTES PERCENT AUTO 11.3 % (3.3-12.6); NEUTROPHILS ABSOLUTE AUTO 8.00 K/uL (1.0-7.6); NEUTROPHILS PERCENT AUTO 74.9 % (40.0-78.1); PLATELET COUNT,PLT 247 K/uL (130-375); RED BLOOD CELL COUNT 3.32 M/uL (4.14-5.76); WHITE BLOOD CELL COUNT,WBC 10.7 K/uL (3.2-11.0)
[2025-10-02 16:56] LABS: BLOOD UREA NITROGEN,BUN 16.0 mg/dL (7-18); CARBON DIOXIDE,CO2 30.0 mmol/L (21-32); CHLORIDE,CL 97.0 mmol/L (100-108); CREATININE 1.1 mg/dL (0.8-1.3); EST CRCL DRUG DOSING (CG) 64.48 mL/min; ESTIMATED GFR 71.0 mL/min (>60); GLUCOSE RANDOM 96.0 mg/dL (74-106); POTASSIUM,K 3.7 mmol/L (3.6-5.2); SODIUM,NA 133.0 mmol/L (140-148)
[2025-10-02 17:19] VITALS: BP 108/75; PULSE 87
== END 2025-10-02 17:20 | disposition home or self-care (01) ==
LOC: JP.ED 14:50
DX: E83.42 Hypomagnesemia (principal); I10 Essential (primary) hypertension; E78.00 Pure hypercholesterolemia, unspecified; Z88.0 Allergy status to penicillin; Z79.899 Other long term (current) drug therapy; Z87.891 Personal history of nicotine dependence
CPT/HCPCS: 36415; 80048; 83735; 85025; 99283